=== PATIENT | female | born 1940 | race Caucasian/White ===

== ENCOUNTER 2018-03-05 18:46 | Inpatient (IN) | payer MEDICARE, OTHER ==
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
[2018-03-05 20:10] LABS: % BASOPHILS 0.3 % (0.0-2.0); % EOSINOPHILS 2.8 % (0.0-5.0); % LYMPHOCYTES 20.5 % (20.0-50.0); % MONOCYTES 9.5 % (2.0-10.0); % NEUTROPHILS 66.9 % (40.0-80.0); EOSINOPHILE ABSOLUTE 0.2 Th/cmm (0.1-0.4); HEMATOCRIT 47.4 % (41.0-60); HEMOGLOBIN 16.1 gm/dL (12-16); LYMPHOCYTE ABSOLUTE 1.8 Th/cmm (1.5-3.0); MEAN CELL VOLUME 94.4 fl (81-100); MEAN CORPUSCULAR HEMOGLOBIN 32.1 pg (27.0-31.0); MEAN PLATELET VOLUME 8.3 fl; MONOCYTE ABSOLUTE 0.8 Th/cmm (0.3-1.0); NEUTROPHILE ABSOLUTE 5.9 Th/cmm (1.8-8.0); PLATELET COUNT 363 Th/cmm (150-400); RED BLOOD COUNT 5.02 Mil/cmm (3.80-5.20); RED CELL DISTRIBUTION WIDTH 13.6 % (11.5-20.0); WHITE BLOOD COUNT 8.7 Th/cmm (4.8-10.8)
[2018-03-05 20:24] LABS: ALB/GLOB RATIO 1.2 (1.0-1.8); ALBUMIN 4.3 gm/dL (3.7-5.3); ALKALINE PHOSPHATASE 116 U/L (34-104); ANION GAP 14.2 (7.0-16.0); BILIRUBIN,TOTAL 0.4 mg/dL (0.3-1.0); BUN - UREA NITROGEN 15 mg/dL (7-25); CALCIUM SERUM 9.5 mg/dL (8.6-10.3); CARBON DIOXIDE 23.1 mEq/L (21.0-31.0); CHLORIDE 104 mEq/L (98-107); CREATININE - SERUM 0.7 mg/dL (0.6-1.2); GLUCOSE 90 mg/dL (70-105); POTASSIUM SERUM 4.3 mEq/L (3.5-5.1); SGOT 24 U/L (13-39); SGPT/ALT 15 U/L (7-52); SODIUM SERUM 137 mEq/L (136-145); TOTAL PROTEIN,SERUM 7.8 gm/dL (6.0-8.3)
[2018-03-05 22:10] VITALS: BP 125/72
[2018-03-05] MEDS ORDERED: Maalox 30 mL Cup PO PRN (22:17)
[2018-03-05] MEDS ORDERED: Magnesium Hydroxide (MOM) 30 mL UDC PO PRN (22:17)
[2018-03-06] MEDS: Levothyroxine 0.075 Mg Tab PO SCH (06:45)
--- NOTE | 2018-03-06 07:43 | Diagnostic Imaging Report ---
CHEST X-RAY: AP view INDICATION: Shortness of breath COMPARISON: None FINDINGS: Left basal subsegmental atelectatic changes are noted. There is no focal consolidation or pleural effusions The heart is normal in size. Atherosclerosis of the aortic arch is noted.. Postsurgical changes of the cervical spine are noted. IMPRESSION: Left basal subsegmental atelectasis. No focal consolidation identified. Atherosclerotic vascular disease.
[2018-03-06] MEDS: Vitamin D3 2,000 IU SGL PO SCH (09:14)
[2018-03-06] MEDS: Calcium Carb/Vit D 500 mg/200 U Tab PO SCH (09:14)
[2018-03-06] MEDS: Potassium Chloride 20 mEq ER Tab PO SCH (09:15)
[2018-03-06] MEDS: Multivitamin Tab PO SCH (09:15)
--- NOTE | 2018-03-06 12:42 | History & Physical ---
ADMIT DATE: 03/05/2018 CHIEF COMPLAINT: The patient is being seen for medical evaluation and clearance. PRIMARY DOCTOR: Gregoria Charles M.D. HISTORY OF PRESENT ILLNESS: This is a 77-year-old female with history of seizure, DVT of left lower extremity, hypothyroidism, hypertension, admitted from [facility] secondary to agitated behavior under the service of Dr. Charles. The patient is a poor historian. Denies chest pain or shortness of breath. PAST MEDICAL HISTORY: As mentioned in history of present illness. PAST SURGICAL HISTORY: ____ and tonsillectomy. ALLERGIES: PHENOBARBITAL. MEDICATIONS: Tylenol, calcium, vitamin D3, Depakote, Colace, Pepcid, Lasix, Synthroid, melatonin, Macrobid, Dilantin, potassium, Xarelto, and Ambien. FAMILY HISTORY: Noncontributory. SOCIAL HISTORY: The patient is a nonsmoker, nondrinker. A [facility] patient, one time with 2 children. REVIEW OF SYSTEMS: GENERAL: The patient denies any constitutional symptoms. HEENT: No blurred vision. LUNGS: No diagnosis of COPD or asthma. HEART: The patient has hypertension. Denies coronary artery disease. ABDOMEN: No nausea, vomiting or pain. GENITOURINARY: The patient denies increased frequency or dysuria. NEUROLOGIC: The patient with seizure and headache. PSYCHIATRIC: Stable. PHYSICAL EXAMINATION: VITAL SIGNS: Blood pressure 120/64, respirations 18, pulse 88, temperature is ____. GENERAL: Elderly female, mildly obese. NECK: Supple. No mass. LUNGS: Equal breath sounds, otherwise clear to auscultation. HEART: Regular rate and rhythm without appreciable murmurs. ABDOMEN: Soft, globular. EXTREMITIES: Positive excoriation. NEUROLOGIC: Limited. LABORATORY DATA: WBC 8.7, hemoglobin 16, platelets 363. Sodium 137, potassium 4.3, BUN 34, creatinine 0.7, blood sugar 116. ASSESSMENT AND PLAN: Seizures, schizoaffective disorder, recent urinary tract infection, deep vein thrombosis left lower extremity, hypothyroidism, hypertension, obesity. Continue the patient on oxygen and bronchodilator treatment. Continue antiepileptic medication. Continue fall precaution and seizure precaution. We will continue to follow with you, Dr. Charles. JOB# [id number]
[2018-03-06] MEDS ORDERED: MELATONIN 10 MG PO SCH (21:00)
[2018-03-06] MEDS ORDERED: Non-Formulary Item 1 EA (Melatonin [Melatonin] 10 MG) PO SCH (21:00)
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
[2018-03-07] MEDS: Levothyroxine 0.075 Mg Tab PO SCH (06:34)
[2018-03-07] MEDS: Potassium Chloride 20 mEq ER Tab PO SCH (08:59)
[2018-03-07] MEDS: Vitamin D3 2,000 IU SGL PO SCH (08:59)
[2018-03-07] MEDS: Multivitamin Tab PO SCH (09:00)
[2018-03-07] MEDS: Calcium Carb/Vit D 500 mg/200 U Tab PO SCH (09:00)
--- NOTE | 2018-03-07 14:55 | Internal Medicine Prog Note ---
Internal Medicine Subjective - Subjective Service Date: 03/07/18 Patient seen and examined:: with staff Patient is:: awake, verbal, alexis chair Per staff patient has:: tolerating meds Internal Medicine Objective - Results Result Diagrams: 03/05/18 20:00 03/05/18 20:00 Recent Labs: Laboratory Last Values WBC 8.7 Th/cmm (4.8-10.8) 03/05/18 20:00 RBC 5.02 Mil/cmm (3.80-5.20) 03/05/18 20:00 Hgb 16.1 gm/dL (12-16) 03/05/18 20:00 Hct 47.4 % (41.0-60) 03/05/18 20:00 MCV 94.4 fl (81-100) 03/05/18 20:00 MCH 32.1 pg (27.0-31.0) H 03/05/18 20:00 MCHC Differential 34.0 pg (28.0-36.0) 03/05/18 20:00 RDW 13.6 % (11.5-20.0) 03/05/18 20:00 Plt Count 363 Th/cmm (150-400) 03/05/18 20:00 MPV 8.3 fl 03/05/18 20:00 Neutrophils % 66.9 % (40.0-80.0) 03/05/18 20:00 Lymphocytes % 20.5 % (20.0-50.0) 03/05/18 20:00 Monocytes % 9.5 % (2.0-10.0) 03/05/18 20:00 Eosinophils % 2.8 % (0.0-5.0) 03/05/18 20:00 Basophils % 0.3 % (0.0-2.0) 03/05/18 20:00 Sodium 137 mEq/L (136-145) 03/05/18 20:00 Potassium 4.3 mEq/L (3.5-5.1) 03/05/18 20:00 Chloride 104 mEq/L (98-107) 03/05/18 20:00 Carbon Dioxide 23.1 mEq/L (21.0-31.0) 03/05/18 20:00 Anion Gap 14.2 (7.0-16.0) 03/05/18 20:00 BUN 15 mg/dL (7-25) 03/05/18 20:00 Creatinine 0.7 mg/dL (0.6-1.2) 03/05/18 20:00 Est GFR ( Amer) TNP 03/05/18 20:00 Est GFR (Non-Af Amer) TNP 03/05/18 20:00 BUN/Creatinine Ratio 21.4 03/05/18 20:00 Glucose 90 mg/dL (70-105) 03/05/18 20:00 Calcium 9.5 mg/dL (8.6-10.3) 03/05/18 20:00 Total Bilirubin 0.4 mg/dL (0.3-1.0) 03/05/18 20:00 AST 24 U/L (13-39) 03/05/18 20:00 ALT 15 U/L (7-52) 03/05/18 20:00 Alkaline Phosphatase 116 U/L (34-104) H 03/05/18 20:00 Troponin I < 0.01 ng/mL (0.01-0.05) L 03/05/18 20:00 B-Natriuretic Peptide 53.0 pg/mL (5.0-100.0) 03/05/18 20:00 Total Protein 7.8 gm/dL (6.0-8.3) 03/05/18 20:00 Albumin 4.3 gm/dL (3.7-5.3) 03/05/18 20:00 Globulin 3.5 gm/dL 03/05/18 20:00 Albumin/Globulin Ratio 1.2 (1.0-1.8) 03/05/18 20:00 - Physical Exam Vitals and I&O: Vital Signs Temp 97.6 F 03/07/18 06:14 Pulse 80 03/07/18 06:14 Resp 19 03/07/18 11:19 BP 117/58 03/07/18 09:00 Pulse Ox 92 03/07/18 06:14 Intake & Output 03/06/1818 18 18:59 06:59 18:59 Intake Total 900 360 Balance 900 360 Intake: Oral 900 360 Other: # Voids 3 1 # Bowel Movements 0 Active Medications: Current Medications Acetaminophen (Tylenol) 650 mg PO Q4H PRN PRN Reason: Mild Pain / Temp above 100 Stop: 05/04/18 22:16 Al Hydrox/Mg Hydrox/Simethicone (Maalox) 30 ml PO Q4H PRN PRN Reason: GI DISTRESS Stop: 05/04/18 22:16 Aripiprazole (Abilify) 7.5 mg PO DAILY [facility]; Protocol Stop: 05/05/18 08:59 Last Admin: 03/07/18 09:00 Dose: Not Given Calcium/Vitamin D (Oscal W/Vitamin D) 1 tab PO DAILY [facility] Stop: 05/05/18 08:59 Last Admin: 03/07/18 09:00 Dose: Not Given Divalproex Sodium (Depakote Sprinkle) 500 mg PO BID [facility]; Protocol Stop: 05/05/18 08:59 Last Admin: 03/07/18 08:59 Dose: Not Given Docusate Sodium (Colace) 100 mg PO DAILY [facility] Stop: 05/05/18 08:59 Last Admin: 03/07/18 09:00 Dose: Not Given Famotidine (Pepcid) 20 mg PO BIDAC [facility] Stop: 05/05/18 07:29 Last Admin: 03/07/18 06:34 Dose: 20 mg Furosemide (Lasix) 40 mg PO DAILY [facility] Stop: 05/05/18 08:59 Last Admin: 03/07/18 09:00 Dose: Not Given Levothyroxine Sodium (Synthroid) 0.075 mg PO QDAC [facility] Stop: 05/05/18 07:29 Last Admin: 03/07/18 06:34 Dose: 0.075 mg Lorazepam (Ativan) 0.5 mg PO Q4H PRN; Protocol PRN Reason: Anxiety/Agitation Stop: 05/04/18 22:49 Last Admin: 03/05/18 23:50 Dose: 0.5 mg Magnesium Hydroxide (Milk Of Magnesia) 30 ml PO HS PRN PRN Reason: Constipation Miscellaneous (Clinical Monitoring) 1 ea [facility] DAILY PRN PRN Reason: RENAL Stop: 05/05/18 08:59 Multivitamins/Vitamin C (Theragran) 1 tab PO DAILY [facility] Stop: 05/05/18 08:59 Last Admin: 03/07/18 09:00 Dose: Not Given Nitrofurantoin Macrocrystals (Macrobid) 100 mg PO BID [facility]; Protocol Stop: 03/16/18 08:59 Last Admin: 03/07/18 08:59 Dose: Not Given Phenytoin (Dilantin) 200 mg PO BID [facility] Stop: 05/05/18 08:59 Last Admin: 03/07/18 08:59 Dose: 200 mg Potassium Chloride (Klor-Con) 40 meq PO DAILY [facility] Stop: 05/05/18 08:59 Last Admin: 03/07/18 08:59 Dose: Not Given Rivaroxaban (Xarelto) 20 mg PO HS [facility] Stop: 05/04/18 22:59 Last Admin: 03/06/18 20:49 Dose: 20 mg Vitamin D (Vitamin D3) 2,000 iu PO DAILY [facility] Stop: 05/05/18 08:59 Last Admin: 03/07/18 08:59 Dose: Not Given Zolpidem Tartrate (Ambien) 5 mg PO HS PRN PRN Reason: Insomnia Stop: 05/04/18 22:16 Last Admin: 03/06/18 20:49 Dose: 5 mg General: alert HEENT: NC/AT, PERRLA Neck: Supple Lungs: CTAB Cardiovascular: RRR, Normal S1, Normal S2, without murmur Abdomen: soft, non-tender, non-distended Extremities: excoriation Neurological: alert Internal Medicine Assmt/Plan - Assessment Assessment: seizures schizoaffective recent uti dvt left lower extremity hypothyroidism htn obesity - Plan Plan: seizure precautions o2 as needed continue current plan of care
--- NOTE | 2018-03-08 00:22 | Progress Notes ---
DATE: 03/07/2018 SUBJECTIVE: Staff was spoken to. The patient is interviewed. Mood is noted to be irritable. Affect is constricted. Insight and judgment at this time are noted to be still impaired. Impulse control is noted to be limited. Coping skills are noted to be limited. The patient has been having paranoid delusions. The patient is being closely monitored for her combative and aggressive behavior towards the staff. No side effects to the medications are noted. The patient is currently on the Abilify and Depakote and has been able to tolerate the medication. ASSESSMENT: The patient is still psychotic and impulsive. PLAN: To continue the patient with the supportive therapy. Encouraged the patient to verbalize the concerns rather than to act out. JOB# [id number]
[2018-03-08] MEDS: Levothyroxine 0.075 Mg Tab PO SCH (07:07)
[2018-03-08] MEDS: Calcium Carb/Vit D 500 mg/200 U Tab PO SCH (09:07)
[2018-03-08] MEDS: Vitamin D3 2,000 IU SGL PO SCH (09:07)
[2018-03-08] MEDS: Potassium Chloride 20 mEq ER Tab PO SCH (09:08)
[2018-03-08] MEDS: Multivitamin Tab PO SCH (09:08)
--- NOTE | 2018-03-08 12:36 | Internal Medicine Prog Note ---
Internal Medicine Subjective - Subjective Service Date: 03/08/18 Patient is:: awake, verbal, alexis chair Per staff patient has:: tolerating meds Internal Medicine Objective - Results Result Diagrams: 03/05/18 20:00 03/05/18 20:00 Recent Labs: Laboratory Last Values WBC 8.7 Th/cmm (4.8-10.8) 03/05/18 20:00 RBC 5.02 Mil/cmm (3.80-5.20) 03/05/18 20:00 Hgb 16.1 gm/dL (12-16) 03/05/18 20:00 Hct 47.4 % (41.0-60) 03/05/18 20:00 MCV 94.4 fl (81-100) 03/05/18 20:00 MCH 32.1 pg (27.0-31.0) H 03/05/18 20:00 MCHC Differential 34.0 pg (28.0-36.0) 03/05/18 20:00 RDW 13.6 % (11.5-20.0) 03/05/18 20:00 Plt Count 363 Th/cmm (150-400) 03/05/18 20:00 MPV 8.3 fl 03/05/18 20:00 Neutrophils % 66.9 % (40.0-80.0) 03/05/18 20:00 Lymphocytes % 20.5 % (20.0-50.0) 03/05/18 20:00 Monocytes % 9.5 % (2.0-10.0) 03/05/18 20:00 Eosinophils % 2.8 % (0.0-5.0) 03/05/18 20:00 Basophils % 0.3 % (0.0-2.0) 03/05/18 20:00 Sodium 137 mEq/L (136-145) 03/05/18 20:00 Potassium 4.3 mEq/L (3.5-5.1) 03/05/18 20:00 Chloride 104 mEq/L (98-107) 03/05/18 20:00 Carbon Dioxide 23.1 mEq/L (21.0-31.0) 03/05/18 20:00 Anion Gap 14.2 (7.0-16.0) 03/05/18 20:00 BUN 15 mg/dL (7-25) 03/05/18 20:00 Creatinine 0.7 mg/dL (0.6-1.2) 03/05/18 20:00 Est GFR ( Amer) TNP 03/05/18 20:00 Est GFR (Non-Af Amer) TNP 03/05/18 20:00 BUN/Creatinine Ratio 21.4 03/05/18 20:00 Glucose 90 mg/dL (70-105) 03/05/18 20:00 Calcium 9.5 mg/dL (8.6-10.3) 03/05/18 20:00 Total Bilirubin 0.4 mg/dL (0.3-1.0) 03/05/18 20:00 AST 24 U/L (13-39) 03/05/18 20:00 ALT 15 U/L (7-52) 03/05/18 20:00 Alkaline Phosphatase 116 U/L (34-104) H 03/05/18 20:00 Troponin I < 0.01 ng/mL (0.01-0.05) L 03/05/18 20:00 B-Natriuretic Peptide 53.0 pg/mL (5.0-100.0) 03/05/18 20:00 Total Protein 7.8 gm/dL (6.0-8.3) 03/05/18 20:00 Albumin 4.3 gm/dL (3.7-5.3) 03/05/18 20:00 Globulin 3.5 gm/dL 03/05/18 20:00 Albumin/Globulin Ratio 1.2 (1.0-1.8) 03/05/18 20:00 - Physical Exam Vitals and I&O: Vital Signs Temp 97.4 F 03/08/18 06:16 Pulse 76 03/08/18 06:16 Resp 20 03/08/18 06:16 BP 111/67 03/08/18 06:16 Pulse Ox 96 03/08/18 06:16 Intake & Output 03/07/18 03/08/18 03/08/18 18:59 06:59 18:59 Intake Total 960 120 Balance 960 120 Intake: Oral 960 120 Other: # Voids 3 3 # Bowel Movements 1 Active Medications: Current Medications Acetaminophen (Tylenol) 650 mg PO Q4H PRN PRN Reason: Mild Pain / Temp above 100 Stop: 05/04/18 22:16 Al Hydrox/Mg Hydrox/Simethicone (Maalox) 30 ml PO Q4H PRN PRN Reason: GI DISTRESS Stop: 05/04/18 22:16 Aripiprazole (Abilify) 7.5 mg PO DAILY [facility]; Protocol Stop: 05/05/18 08:59 Last Admin: 03/08/18 09:00 Dose: Not Given Calcium/Vitamin D (Oscal W/Vitamin D) 1 tab PO DAILY [facility] Stop: 05/05/18 08:59 Last Admin: 03/08/18 09:07 Dose: Not Given Divalproex Sodium (Depakote Sprinkle) 500 mg PO BID [facility]; Protocol Stop: 05/05/18 08:59 Last Admin: 03/08/18 09:01 Dose: 250 mg Docusate Sodium (Colace) 100 mg PO DAILY [facility] Stop: 05/05/18 08:59 Last Admin: 03/08/18 09:01 Dose: Not Given Famotidine (Pepcid) 20 mg PO BIDAC [facility] Stop: 05/05/18 07:29 Last Admin: 03/08/18 07:07 Dose: 20 mg Furosemide (Lasix) 40 mg PO DAILY [facility] Stop: 05/05/18 08:59 Last Admin: 03/08/18 09:08 Dose: Not Given Levothyroxine Sodium (Synthroid) 0.075 mg PO QDAC [facility] Stop: 05/05/18 07:29 Last Admin: 03/08/18 07:07 Dose: 0.075 mg Lorazepam (Ativan) 0.5 mg PO Q4H PRN; Protocol PRN Reason: Anxiety/Agitation Stop: 05/04/18 22:49 Last Admin: 03/05/18 23:50 Dose: 0.5 mg Magnesium Hydroxide (Milk Of Magnesia) 30 ml PO HS PRN PRN Reason: Constipation Miscellaneous (Clinical Monitoring) 1 ea [facility] DAILY PRN PRN Reason: RENAL Stop: 05/05/18 08:59 Multivitamins/Vitamin C (Theragran) 1 tab PO DAILY [facility] Stop: 05/05/18 08:59 Last Admin: 03/08/18 09:08 Dose: Not Given Nitrofurantoin Macrocrystals (Macrobid) 100 mg PO BID [facility]; Protocol Stop: 03/16/18 08:59 Last Admin: 03/08/18 09:01 Dose: Not Given Phenytoin (Dilantin) 200 mg PO BID [facility] Stop: 05/05/18 08:59 Last Admin: 03/08/18 09:00 Dose: 100 mg Potassium Chloride (Klor-Con) 40 meq PO DAILY [facility] Stop: 05/05/18 08:59 Last Admin: 03/08/18 09:08 Dose: Not Given Rivaroxaban (Xarelto) 20 mg PO HS [facility] Stop: 05/04/18 22:59 Last Admin: 03/07/18 20:26 Dose: 20 mg Vitamin D (Vitamin D3) 2,000 iu PO DAILY [facility] Stop: 05/05/18 08:59 Last Admin: 03/08/18 09:07 Dose: Not Given Zolpidem Tartrate (Ambien) 5 mg PO HS PRN PRN Reason: Insomnia Stop: 05/04/18 22:16 Last Admin: 03/07/18 20:27 Dose: 5 mg General: alert HEENT: NC/AT, PERRLA Neck: Supple Lungs: CTAB Cardiovascular: RRR, Normal S1, Normal S2, without murmur Abdomen: soft, non-tender, non-distended Extremities: excoriation Neurological: alert Internal Medicine Assmt/Plan - Assessment Assessment: seizures schizoaffective recent uti dvt left lower extremity hypothyroidism htn obesity - Plan Plan: seizure precautions o2 as needed continue current plan of care
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
--- NOTE | 2018-03-09 01:28 | Progress Notes ---
DATE: 03/08/2018 PSYCHIATRIC PROGRESS NOTE SUBJECTIVE: Staff was spoken to. The patient is interviewed. Mood is noted to be irritable. Affect is constricted. The patient has paranoid delusions. Denies any commanding hallucinations today. No side effects to the medications are noted. The patient has been currently on Abilify that she has been getting at 7.5 mg and she is also on Depakote 500 mg twice a day. The patient has been able to tolerate the medications, no side effects to the medications are noted. The patient is, at this time, stating that the medication is making her to be too anxious and hence, the dose of the Abilify has been changed to 5 mg in the morning and the patient is going to be followed up with the supportive therapy. ASSESSMENT: The patient has paranoia and mood swings are coming under control. PLAN: To continue the patient with the current medications and follow up. JOB# [id number]
[2018-03-09] MEDS: Levothyroxine 0.075 Mg Tab PO SCH (06:30)
--- NOTE | 2018-03-09 08:44 | Progress Notes ---
DATE: 03/09/2018 PSYCHIATRIC PROGRESS NOTE SUBJECTIVE: Staff was spoken to. The patient is interviewed. Mood is noted to be irritable. Affect is constricted. Coping skills are noted to be still poor. The patient has paranoid delusions, but denies any commanding hallucinations. Insight and judgment at this time are noted to be still impaired. Impulse control seems to be limited. ASSESSMENT AND PLAN: The patient is currently on Abilify, which is being given at 5 mg, and the patient is being given valproic acid 500 mg twice a day. No side effects to the medications are noted. The patient's mood swings are coming under control, but the patient continues to be paranoid. Follow up. [facility]# [id number]
[2018-03-09] MEDS: Calcium Carb/Vit D 500 mg/200 U Tab PO SCH (09:07)
[2018-03-09] MEDS: Multivitamin Tab PO SCH (09:07)
[2018-03-09] MEDS: Vitamin D3 2,000 IU SGL PO SCH (09:09)
[2018-03-09] MEDS: Potassium Chloride 20 mEq ER Tab PO SCH (09:10)
--- NOTE | 2018-03-09 15:45 | Internal Medicine Prog Note ---
Internal Medicine Subjective - Subjective Service Date: 03/09/18 Patient is:: awake, verbal, alexis chair Per staff patient has:: tolerating meds Internal Medicine Objective - Results Result Diagrams: 03/05/18 20:00 03/05/18 20:00 Recent Labs: Laboratory Last Values WBC 8.7 Th/cmm (4.8-10.8) 03/05/18 20:00 RBC 5.02 Mil/cmm (3.80-5.20) 03/05/18 20:00 Hgb 16.1 gm/dL (12-16) 03/05/18 20:00 Hct 47.4 % (41.0-60) 03/05/18 20:00 MCV 94.4 fl (81-100) 03/05/18 20:00 MCH 32.1 pg (27.0-31.0) H 03/05/18 20:00 MCHC Differential 34.0 pg (28.0-36.0) 03/05/18 20:00 RDW 13.6 % (11.5-20.0) 03/05/18 20:00 Plt Count 363 Th/cmm (150-400) 03/05/18 20:00 MPV 8.3 fl 03/05/18 20:00 Neutrophils % 66.9 % (40.0-80.0) 03/05/18 20:00 Lymphocytes % 20.5 % (20.0-50.0) 03/05/18 20:00 Monocytes % 9.5 % (2.0-10.0) 03/05/18 20:00 Eosinophils % 2.8 % (0.0-5.0) 03/05/18 20:00 Basophils % 0.3 % (0.0-2.0) 03/05/18 20:00 Sodium 137 mEq/L (136-145) 03/05/18 20:00 Potassium 4.3 mEq/L (3.5-5.1) 03/05/18 20:00 Chloride 104 mEq/L (98-107) 03/05/18 20:00 Carbon Dioxide 23.1 mEq/L (21.0-31.0) 03/05/18 20:00 Anion Gap 14.2 (7.0-16.0) 03/05/18 20:00 BUN 15 mg/dL (7-25) 03/05/18 20:00 Creatinine 0.7 mg/dL (0.6-1.2) 03/05/18 20:00 Est GFR ( Amer) TNP 03/05/18 20:00 Est GFR (Non-Af Amer) TNP 03/05/18 20:00 BUN/Creatinine Ratio 21.4 03/05/18 20:00 Glucose 90 mg/dL (70-105) 03/05/18 20:00 Calcium 9.5 mg/dL (8.6-10.3) 03/05/18 20:00 Total Bilirubin 0.4 mg/dL (0.3-1.0) 03/05/18 20:00 AST 24 U/L (13-39) 03/05/18 20:00 ALT 15 U/L (7-52) 03/05/18 20:00 Alkaline Phosphatase 116 U/L (34-104) H 03/05/18 20:00 Troponin I < 0.01 ng/mL (0.01-0.05) L 03/05/18 20:00 B-Natriuretic Peptide 53.0 pg/mL (5.0-100.0) 03/05/18 20:00 Total Protein 7.8 gm/dL (6.0-8.3) 03/05/18 20:00 Albumin 4.3 gm/dL (3.7-5.3) 03/05/18 20:00 Globulin 3.5 gm/dL 03/05/18 20:00 Albumin/Globulin Ratio 1.2 (1.0-1.8) 03/05/18 20:00 - Physical Exam Vitals and I&O: Vital Signs Temp 97.5 F 03/09/18 14:00 Pulse 89 03/09/18 14:00 Resp 20 03/09/18 14:00 BP 121/58 03/09/18 14:00 Pulse Ox 97 03/09/18 14:00 Intake & Output 03/08/18 03/09/18 03/09/18 18:59 06:59 18:59 Intake Total 1000 120 Balance 1000 120 Intake: Oral 1000 120 Other: # Voids 3 3 Active Medications: Current Medications Acetaminophen (Tylenol) 650 mg PO Q4H PRN PRN Reason: Mild Pain / Temp above 100 Stop: 05/04/18 22:16 Al Hydrox/Mg Hydrox/Simethicone (Maalox) 30 ml PO Q4H PRN PRN Reason: GI DISTRESS Stop: 05/04/18 22:16 Aripiprazole (Abilify) 5 mg PO DAILY [facility]; Protocol Stop: 05/08/18 08:59 Last Admin: 03/09/18 09:59 Dose: Not Given Calcium/Vitamin D (Oscal W/Vitamin D) 1 tab PO DAILY JESSENIA Stop: 05/05/18 08:59 Last Admin: 03/09/18 09:07 Dose: 1 tab Divalproex Sodium (Depakote Sprinkle) 500 mg PO BID [facility]; Protocol Stop: 05/05/18 08:59 Last Admin: 03/09/18 09:12 Dose: 250 mg Docusate Sodium (Colace) 100 mg PO DAILY [facility] Stop: 05/05/18 08:59 Last Admin: 03/09/18 09:12 Dose: 100 mg Famotidine (Pepcid) 20 mg PO BIDAC [facility] Stop: 05/05/18 07:29 Last Admin: 03/09/18 06:30 Dose: 20 mg Furosemide (Lasix) 40 mg PO DAILY [facility] Stop: 05/05/18 08:59 Last Admin: 03/09/18 09:10 Dose: Not Given Levothyroxine Sodium (Synthroid) 0.075 mg PO QDAC [facility] Stop: 05/05/18 07:29 Last Admin: 03/09/18 06:30 Dose: 0.075 mg Lorazepam (Ativan) 0.5 mg PO Q4H PRN; Protocol PRN Reason: Anxiety/Agitation Stop: 05/04/18 22:49 Last Admin: 03/05/18 23:50 Dose: 0.5 mg Magnesium Hydroxide (Milk Of Magnesia) 30 ml PO HS PRN PRN Reason: Constipation Miscellaneous (Clinical Monitoring) 1 ea MC DAILY PRN PRN Reason: RENAL Stop: 05/05/18 08:59 Multivitamins/Vitamin C (Theragran) 1 tab PO DAILY JESSENIA Stop: 05/05/18 08:59 Last Admin: 03/09/18 09:07 Dose: 1 tab Nitrofurantoin Macrocrystals (Macrobid) 100 mg PO BID [facility]; Protocol Stop: 03/16/18 08:59 Last Admin: 03/09/18 09:11 Dose: 100 mg Phenytoin (Dilantin) 200 mg PO BID JESSENIA Stop: 05/05/18 08:59 Last Admin: 03/09/18 09:08 Dose: 200 mg Potassium Chloride (Klor-Con) 40 meq PO DAILY JESSENIA Stop: 05/05/18 08:59 Last Admin: 03/09/18 09:10 Dose: Not Given Rivaroxaban (Xarelto) 20 mg PO HS JESSENIA Stop: 05/04/18 22:59 Last Admin: 03/08/18 21:51 Dose: 20 mg Vitamin D (Vitamin D3) 2,000 iu PO DAILY JESSENIA Stop: 05/05/18 08:59 Last Admin: 03/09/18 09:09 Dose: 2,000 iu Zolpidem Tartrate (Ambien) 5 mg PO HS PRN PRN Reason: Insomnia Stop: 05/04/18 22:16 Last Admin: 03/08/18 21:51 Dose: 5 mg General: alert HEENT: NC/AT, PERRLA Neck: Supple Lungs: CTAB Cardiovascular: RRR, Normal S1, Normal S2, without murmur Abdomen: soft, non-tender, non-distended Extremities: excoriation Neurological: alert Internal Medicine Assmt/Plan - Assessment Assessment: seizures schizoaffective recent uti dvt left lower extremity hypothyroidism htn obesity - Plan Plan: seizure precautions o2 as needed continue current plan of care Nutritional Asmnt/Malnutr-PDOC - Dietary Evaluation Malnutrition Findings (Please click <Entered> for more info): Nutritional Asmnt/Malnutrition Start: 03/09/18 14: 19 Text: Status: Complete Freq: Protocol: Document 03/09/18 14:19 LCHENG (Rec: 03/09/18 14:29 [email or web address] [email or web address]) Nutritional Asmnt/Malnutrition Patient General Information Nutritional Screening Moderate Risk Diagnosis psychosis Pertinent Medical Hx/Surgical Hx seizure, DVT, hypothyroidism, HTN Subjective Information Pt seen eating lunch in dining room at time of visit. Pt was eating well. Per EMR, PO intake 100%. Current Diet Order/ Nutrition Support [facility] soft ground Pertinent Medications oscal w/vit D, colace, pepcid, lasix, synthorid, theragran, kcl, vit D3 Pertinent Labs 03/05 nutrition labs WNL Nutritional Hx/Data Height 5 ft Height (Calculated Centimeters) 152.4 Current Weight (lbs) 180 lb Weight (Calculated Kilograms) 81.6 Weight (Calculated Grams) 07306.6 [place] Body Weight 100 Body Mass Index (BMI) 35.2 Weight Status Obese GI Symptoms GI Symptoms None Last BM 03/07 Difficult in: None Skin Integrity/Comment: dryness Current %PO Good (75-100%) Estimated Nutritional Goals BEE in Kcals: Adj wt of IBW Calories/Kcals/Kg 25-30 Kcals Calculated 3369-9388 Protein: Adj wt of IBW Protein g/k Protein Calculated 55 Fluid: ml 1375-1650ml (1ml/kcal) Nutritional Problem No current Nutrition Prob Problem N/A Malnutrition Alert Is there a minimum of two criteria No selected? Query Text:Check all the applicable criteria. A minimum of two criteria are recommended for diagnosis of either severe or non-severe malnutrition. Malnutrition Related to Morbid Obesity Malnutrition related to morbid obesity No Intervention/Recommendation Comments 1. Continue with [facility] soft ground diet as ordered. 2. Monitor PO intake, wt, labs and skin integrity 3. F/U as low risk in 7 days, 03/15 Expected Outcomes/Goals Expected Outcomes/Goals 1. PO intake to meet at least 75% of nutritional needs. 2. Wt stability, skin to remain intact, labs to approach WNL.
[2018-03-10] MEDS: Levothyroxine 0.075 Mg Tab PO SCH (06:47)
[2018-03-10] MEDS: Vitamin D3 2,000 IU SGL PO SCH (09:11)
[2018-03-10] MEDS: Multivitamin Tab PO SCH (09:15)
[2018-03-10] MEDS: Calcium Carb/Vit D 500 mg/200 U Tab PO SCH (09:15)
[2018-03-10] MEDS: Potassium Chloride 20 mEq ER Tab PO SCH (09:21)
--- NOTE | 2018-03-10 14:29 | Internal Medicine Prog Note ---
Internal Medicine Subjective - Subjective Patient seen and examined:: with staff, chart reviewed Patient is:: awake, verbal, alexis chair Per staff patient has:: no adverse event, no episodes of fall, poor appetite, tolerating meds Internal Medicine Objective - Results Result Diagrams: 03/05/18 20:00 03/05/18 20:00 Recent Labs: Laboratory Last Values WBC 8.7 Th/cmm (4.8-10.8) 03/05/18 20:00 RBC 5.02 Mil/cmm (3.80-5.20) 03/05/18 20:00 Hgb 16.1 gm/dL (12-16) 03/05/18 20:00 Hct 47.4 % (41.0-60) 03/05/18 20:00 MCV 94.4 fl (81-100) 03/05/18 20:00 MCH 32.1 pg (27.0-31.0) H 03/05/18 20:00 MCHC Differential 34.0 pg (28.0-36.0) 03/05/18 20:00 RDW 13.6 % (11.5-20.0) 03/05/18 20:00 Plt Count 363 Th/cmm (150-400) 03/05/18 20:00 MPV 8.3 fl 03/05/18 20:00 Neutrophils % 66.9 % (40.0-80.0) 03/05/18 20:00 Lymphocytes % 20.5 % (20.0-50.0) 03/05/18 20:00 Monocytes % 9.5 % (2.0-10.0) 03/05/18 20:00 Eosinophils % 2.8 % (0.0-5.0) 03/05/18 20:00 Basophils % 0.3 % (0.0-2.0) 03/05/18 20:00 Sodium 137 mEq/L (136-145) 03/05/18 20:00 Potassium 4.3 mEq/L (3.5-5.1) 03/05/18 20:00 Chloride 104 mEq/L (98-107) 03/05/18 20:00 Carbon Dioxide 23.1 mEq/L (21.0-31.0) 03/05/18 20:00 Anion Gap 14.2 (7.0-16.0) 03/05/18 20:00 BUN 15 mg/dL (7-25) 03/05/18 20:00 Creatinine 0.7 mg/dL (0.6-1.2) 03/05/18 20:00 Est GFR ( Amer) TNP 03/05/18 20:00 Est GFR (Non-Af Amer) TNP 03/05/18 20:00 BUN/Creatinine Ratio 21.4 03/05/18 20:00 Glucose 90 mg/dL (70-105) 03/05/18 20:00 Calcium 9.5 mg/dL (8.6-10.3) 03/05/18 20:00 Total Bilirubin 0.4 mg/dL (0.3-1.0) 03/05/18 20:00 AST 24 U/L (13-39) 03/05/18 20:00 ALT 15 U/L (7-52) 03/05/18 20:00 Alkaline Phosphatase 116 U/L (34-104) H 03/05/18 20:00 Troponin I < 0.01 ng/mL (0.01-0.05) L 03/05/18 20:00 B-Natriuretic Peptide 53.0 pg/mL (5.0-100.0) 03/05/18 20:00 Total Protein 7.8 gm/dL (6.0-8.3) 03/05/18 20:00 Albumin 4.3 gm/dL (3.7-5.3) 03/05/18 20:00 Globulin 3.5 gm/dL 03/05/18 20:00 Albumin/Globulin Ratio 1.2 (1.0-1.8) 03/05/18 20:00 - Physical Exam Vitals and I&O: Vital Signs Temp 97.8 F 03/10/18 06:58 Pulse 74 03/10/18 06:58 Resp 20 03/10/18 06:58 BP 127/58 03/10/18 09:21 Pulse Ox 97 03/10/18 06:58 Intake & Output 03/09/18 03/10/18 03/10/18 18:59 06:59 18:59 Intake Total 1200 Balance 1200 Intake: Oral 1200 Other: # Voids 3 # Bowel Movements 0 Active Medications: Current Medications Acetaminophen (Tylenol) 650 mg PO Q4H PRN PRN Reason: Mild Pain / Temp above 100 Stop: 05/04/18 22:16 Al Hydrox/Mg Hydrox/Simethicone (Maalox) 30 ml PO Q4H PRN PRN Reason: GI DISTRESS Stop: 05/04/18 22:16 Aripiprazole (Abilify) 5 mg PO DAILY JESSENIA; Protocol Stop: 05/08/18 08:59 Last Admin: 03/10/18 09:15 Dose: 5 mg Calcium/Vitamin D (Oscal W/Vitamin D) 1 tab PO DAILY JESSENIA Stop: 05/05/18 08:59 Last Admin: 03/10/18 09:15 Dose: 1 tab Divalproex Sodium (Depakote Sprinkle) 500 mg PO BID JESSENIA; Protocol Stop: 05/05/18 08:59 Last Admin: 03/10/18 09:09 Dose: 250 mg Docusate Sodium (Colace) 100 mg PO DAILY JESSENIA Stop: 05/05/18 08:59 Last Admin: 03/10/18 09:15 Dose: 100 mg Famotidine (Pepcid) 20 mg PO BIDAC JESSENIA Stop: 05/05/18 07:29 Last Admin: 03/10/18 06:47 Dose: 20 mg Furosemide (Lasix) 40 mg PO DAILY JESSENIA Stop: 05/05/18 08:59 Last Admin: 03/10/18 09:21 Dose: Not Given Levothyroxine Sodium (Synthroid) 0.075 mg PO QDAC JESSENIA Stop: 05/05/18 07:29 Last Admin: 03/10/18 06:47 Dose: 0.075 mg Lorazepam (Ativan) 0.5 mg PO Q4H PRN; Protocol PRN Reason: Anxiety/Agitation Stop: 05/04/18 22:49 Last Admin: 03/05/18 23:50 Dose: 0.5 mg Magnesium Hydroxide (Milk Of Magnesia) 30 ml PO HS PRN PRN Reason: Constipation Miscellaneous (Clinical Monitoring) 1 ea MC DAILY PRN PRN Reason: RENAL Stop: 05/05/18 08:59 Multivitamins/Vitamin C (Theragran) 1 tab PO DAILY JESSENIA Stop: 05/05/18 08:59 Last Admin: 03/10/18 09:15 Dose: 1 tab Nitrofurantoin Macrocrystals (Macrobid) 100 mg PO BID JESSENIA; Protocol Stop: 03/16/18 08:59 Last Admin: 03/10/18 09:14 Dose: 100 mg Phenytoin (Dilantin) 200 mg PO BID [facility] Stop: 05/05/18 08:59 Last Admin: 03/10/18 09:10 Dose: 200 mg Potassium Chloride (Klor-Con) 40 meq PO DAILY [facility] Stop: 05/05/18 08:59 Last Admin: 03/10/18 09:21 Dose: Not Given Rivaroxaban (Xarelto) 20 mg PO HS JESSENIA Stop: 05/04/18 22:59 Last Admin: 03/09/18 21:13 Dose: 20 mg Vitamin D (Vitamin D3) 2,000 iu PO DAILY [facility] Stop: 05/05/18 08:59 Last Admin: 03/10/18 09:11 Dose: 2,000 iu Zolpidem Tartrate (Ambien) 5 mg PO HS PRN PRN Reason: Insomnia Stop: 05/04/18 22:16 Last Admin: 03/09/18 21:14 Dose: 5 mg General: demented HEENT: NC/AT, PERRLA Neck: Supple Lungs: CTAB Cardiovascular: RRR, Normal S1, Normal S2, without murmur Abdomen: soft, non-tender, non-distended Extremities: excoriation Neurological: alert Internal Medicine Assmt/Plan - Assessment Assessment: - Assessment Assessment: seizures schizoaffective recent uti dvt left lower extremity hypothyroidism htn obesity - Plan Plan: seizure precautions o2 as needed continue current plan of care - Plan Plan: cpm Nutritional Asmnt/Malnutr-PDOC - Dietary Evaluation Malnutrition Findings (Please click <Entered> for more info): Nutritional Asmnt/Malnutrition Start: 03/09/18 14: 19 Text: Status: Complete Freq: Protocol: Document 03/09/18 14:19 LCHENG (Rec: 03/09/18 14:29 [email or web address] [email or web address]) Nutritional Asmnt/Malnutrition Patient General Information Nutritional Screening Moderate Risk Diagnosis psychosis Pertinent Medical Hx/Surgical Hx seizure, DVT, hypothyroidism, HTN Subjective Information Pt seen eating lunch in dining room at time of visit. Pt was eating well. Per EMR, PO intake 100%. Current Diet Order/ Nutrition Support [facility] soft ground Pertinent Medications oscal w/vit D, colace, pepcid, lasix, synthorid, theragran, kcl, vit D3 Pertinent Labs 03/05 nutrition labs WNL Nutritional Hx/Data Height 1.52 m Height (Calculated Centimeters) 152.4 Current Weight (lbs) 81.647 kg Weight (Calculated Kilograms) 81.6 Weight (Calculated Grams) 28554.6 [place] Body Weight 100 Body Mass Index (BMI) 35.2 Weight Status Obese GI Symptoms GI Symptoms None Last BM 03/07 Difficult in: None Skin Integrity/Comment: dryness Current %PO Good (75-100%) Estimated Nutritional Goals BEE in Kcals: Adj wt of IBW Calories/Kcals/Kg 25-30 Kcals Calculated 9892-1412 Protein: Adj wt of IBW Protein g/k Protein Calculated 55 Fluid: ml 1375-1650ml (1ml/kcal) Nutritional Problem No current Nutrition Prob Problem N/A Malnutrition Alert Is there a minimum of two criteria No selected? Query Text:Check all the applicable criteria. A minimum of two criteria are recommended for diagnosis of either severe or non-severe malnutrition. Malnutrition Related to Morbid Obesity Malnutrition related to morbid obesity No Intervention/Recommendation Comments 1. Continue with [facility] soft ground diet as ordered. 2. Monitor PO intake, wt, labs and skin integrity 3. F/U as low risk in 7 days, 03/15 Expected Outcomes/Goals Expected Outcomes/Goals 1. PO intake to meet at least 75% of nutritional needs. 2. Wt stability, skin to remain intact, labs to approach WNL.
[2018-03-10 18:06] LABS: ALB/GLOB RATIO 1.4 (1.0-1.8); ALBUMIN 4.2 gm/dL (3.7-5.3); ALKALINE PHOSPHATASE 100 U/L (34-104); ANION GAP 11.2 (7.0-16.0); BILIRUBIN,TOTAL 0.4 mg/dL (0.3-1.0); BUN - UREA NITROGEN 17 mg/dL (7-25); CALCIUM SERUM 9.4 mg/dL (8.6-10.3); CARBON DIOXIDE 27.6 mEq/L (21.0-31.0); CHLORIDE 100 mEq/L (98-107); CREATININE - SERUM 0.6 mg/dL (0.6-1.2); GLUCOSE 96 mg/dL (70-105); POTASSIUM SERUM 4.8 mEq/L (3.5-5.1); SGOT 23 U/L (13-39); SGPT/ALT 23 U/L (7-52); SODIUM SERUM 134 mEq/L (136-145); TOTAL PROTEIN,SERUM 7.3 gm/dL (6.0-8.3)
--- NOTE | 2018-03-10 18:22 | Progress Notes ---
DATE: 03/10/2018 SUBJECTIVE: Staff was spoken to. The patient is interviewed. Mood is noted to be irritable. Affect is constricted. The patient has paranoia, but denies any command hallucinations. Insight and judgment are noted to be still impaired. The patient is isolative and withdrawn. ASSESSMENT: The patient is still paranoid. PLAN: To continue the patient with the supportive therapy. I encouraged the patient to verbalize the concerns rather than to act out. The patient is not ready to be discharged to a lower level of care yet. JOB# [id number]
[2018-03-11] MEDS: Levothyroxine 0.075 Mg Tab PO SCH (06:37)
[2018-03-11] MEDS: Multivitamin Tab PO SCH (08:07)
[2018-03-11] MEDS: Vitamin D3 2,000 IU SGL PO SCH (08:07)
[2018-03-11] MEDS: Calcium Carb/Vit D 500 mg/200 U Tab PO SCH (08:08)
[2018-03-11] MEDS: Potassium Chloride 20 mEq ER Tab PO SCH (08:09)
--- NOTE | 2018-03-11 12:02 | Internal Medicine Prog Note ---
Internal Medicine Subjective - Subjective Patient seen and examined:: with staff, chart reviewed Patient is:: awake, verbal, alexis chair Per staff patient has:: no adverse event, no episodes of fall, poor appetite, tolerating meds Internal Medicine Objective - Results Result Diagrams: 03/05/18 20:00 03/10/18 17:34 Recent Labs: Laboratory Last Values WBC 8.7 Th/cmm (4.8-10.8) 03/05/18 20:00 RBC 5.02 Mil/cmm (3.80-5.20) 03/05/18 20:00 Hgb 16.1 gm/dL (12-16) 03/05/18 20:00 Hct 47.4 % (41.0-60) 03/05/18 20:00 MCV 94.4 fl (81-100) 03/05/18 20:00 MCH 32.1 pg (27.0-31.0) H 03/05/18 20:00 MCHC Differential 34.0 pg (28.0-36.0) 03/05/18 20:00 RDW 13.6 % (11.5-20.0) 03/05/18 20:00 Plt Count 363 Th/cmm (150-400) 03/05/18 20:00 MPV 8.3 fl 03/05/18 20:00 Neutrophils % 66.9 % (40.0-80.0) 03/05/18 20:00 Lymphocytes % 20.5 % (20.0-50.0) 03/05/18 20:00 Monocytes % 9.5 % (2.0-10.0) 03/05/18 20:00 Eosinophils % 2.8 % (0.0-5.0) 03/05/18 20:00 Basophils % 0.3 % (0.0-2.0) 03/05/18 20:00 Sodium 134 mEq/L (136-145) L 03/10/18 17:34 Potassium 4.8 mEq/L (3.5-5.1) 03/10/18 17:34 Chloride 100 mEq/L (98-107) 03/10/18 17:34 Carbon Dioxide 27.6 mEq/L (21.0-31.0) 03/10/18 17:34 Anion Gap 11.2 (7.0-16.0) 03/10/18 17:34 BUN 17 mg/dL (7-25) 03/10/18 17:34 Creatinine 0.6 mg/dL (0.6-1.2) 03/10/18 17:34 Est GFR ( Amer) TNP 03/10/18 17:34 Est GFR (Non-Af Amer) TNP 03/10/18 17:34 BUN/Creatinine Ratio 28.3 03/10/18 17:34 Glucose 96 mg/dL (70-105) 03/10/18 17:34 Calcium 9.4 mg/dL (8.6-10.3) 03/10/18 17:34 Total Bilirubin 0.4 mg/dL (0.3-1.0) 03/10/18 17:34 AST 23 U/L (13-39) 03/10/18 17:34 ALT 23 U/L (7-52) 03/10/18 17:34 Alkaline Phosphatase 100 U/L (34-104) 03/10/18 17:34 Troponin I < 0.01 ng/mL (0.01-0.05) L 03/05/18 20:00 B-Natriuretic Peptide 53.0 pg/mL (5.0-100.0) 03/05/18 20:00 Total Protein 7.3 gm/dL (6.0-8.3) 03/10/18 17:34 Albumin 4.2 gm/dL (3.7-5.3) 03/10/18 17:34 Globulin 3.1 gm/dL 03/10/18 17:34 Albumin/Globulin Ratio 1.4 (1.0-1.8) 03/10/18 17:34 Phenytoin 9.0 ug/ml (10.0-20.0) L 03/10/18 17:34 - Physical Exam Vitals and I&O: Vital Signs Temp 98.1 F 03/11/18 06:21 Pulse 86 03/11/18 06:21 Resp 20 03/11/18 06:21 BP 128/67 03/11/18 08:10 Pulse Ox 97 03/11/18 06:21 Intake & Output 03/10/18 03/11/18 03/11/18 18:59 06:59 18:59 Intake Total 1000 480 Output Total 3 Balance 1000 477 Intake: Oral 1000 480 Output: Stool 1 Urine/Stool Mix 2 Other: # Voids 3 # Bowel Movements 0 1 Active Medications: Current Medications Acetaminophen (Tylenol) 650 mg PO Q4H PRN PRN Reason: Mild Pain / Temp above 100 Stop: 05/04/18 22:16 Al Hydrox/Mg Hydrox/Simethicone (Maalox) 30 ml PO Q4H PRN PRN Reason: GI DISTRESS Stop: 05/04/18 22:16 Aripiprazole (Abilify) 5 mg PO DAILY [facility]; Protocol Stop: 05/08/18 08:59 Last Admin: 03/11/18 08:08 Dose: 5 mg Calcium/Vitamin D (Oscal W/Vitamin D) 1 tab PO DAILY [facility] Stop: 05/05/18 08:59 Last Admin: 03/11/18 08:08 Dose: 1 tab Divalproex Sodium (Depakote Sprinkle) 500 mg PO BID [facility]; Protocol Stop: 05/05/18 08:59 Last Admin: 03/11/18 08:07 Dose: 500 mg Docusate Sodium (Colace) 100 mg PO DAILY [facility] Stop: 05/05/18 08:59 Last Admin: 03/11/18 08:08 Dose: 100 mg Famotidine (Pepcid) 20 mg PO BIDAC [facility] Stop: 05/05/18 07:29 Last Admin: 03/11/18 06:37 Dose: 20 mg Furosemide (Lasix) 40 mg PO DAILY [facility] Stop: 05/05/18 08:59 Last Admin: 03/11/18 08:10 Dose: 40 mg Levothyroxine Sodium (Synthroid) 0.075 mg PO QDAC J[facility] Stop: 05/05/18 07:29 Last Admin: 03/11/18 06:37 Dose: 0.075 mg Lorazepam (Ativan) 0.5 mg PO Q4H PRN; Protocol PRN Reason: Anxiety/Agitation Stop: 05/04/18 22:49 Last Admin: 03/05/18 23:50 Dose: 0.5 mg Magnesium Hydroxide (Milk Of Magnesia) 30 ml PO HS PRN PRN Reason: Constipation Miscellaneous (Clinical Monitoring) 1 ea [facility] DAILY PRN PRN Reason: RENAL Stop: 05/05/18 08:59 Multivitamins/Vitamin C (Theragran) 1 tab PO DAILY [facility] Stop: 05/05/18 08:59 Last Admin: 03/11/18 08:07 Dose: 1 tab Nitrofurantoin Macrocrystals (Macrobid) 100 mg PO BID [facility]; Protocol Stop: 03/16/18 08:59 Last Admin: 03/11/18 08:09 Dose: 100 mg Phenytoin (Dilantin) 200 mg PO BID [facility] Stop: 05/05/18 08:59 Last Admin: 03/11/18 08:07 Dose: 200 mg Phenytoin (Dilantin) 50 mg PO HS [facility] Stop: 05/09/18 00:00 Last Admin: 03/11/18 00:51 Dose: 50 mg Potassium Chloride (Klor-Con) 40 meq PO DAILY [facility] Stop: 05/05/18 08:59 Last Admin: 03/11/18 08:09 Dose: 40 meq Rivaroxaban (Xarelto) 20 mg PO HS [facility] Stop: 05/04/18 22:59 Last Admin: 03/10/18 20:45 Dose: 20 mg Vitamin D (Vitamin D3) 2,000 iu PO DAILY [facility] Stop: 05/05/18 08:59 Last Admin: 03/11/18 08:07 Dose: 2,000 iu Zolpidem Tartrate (Ambien) 5 mg PO HS PRN PRN Reason: Insomnia Stop: 05/04/18 22:16 Last Admin: 03/10/18 20:45 Dose: 5 mg General: demented HEENT: NC/AT, PERRLA Neck: Supple Lungs: CTAB Cardiovascular: RRR, Normal S1, Normal S2, without murmur Abdomen: soft, non-tender, non-distended Extremities: excoriation Neurological: alert Internal Medicine Assmt/Plan - Assessment Assessment: - Assessment Assessment: seizures schizoaffective recent uti dvt left lower extremity hypothyroidism htn obesity - Plan Plan: seizure precautions o2 as needed continue current plan of care - Plan Plan: cpm dilantin level noted and adjusted diya rn Nutritional Asmnt/Malnutr-PDOC - Dietary Evaluation Malnutrition Findings (Please click <Entered> for more info): Nutritional Asmnt/Malnutrition Start: 03/09/18 14: 19 Text: Status: Complete Freq: Protocol: Document 03/09/18 14:19 MARJORIE (Rec: 03/09/18 14:29 [email or web address]) Nutritional Asmnt/Malnutrition Patient General Information Nutritional Screening Moderate Risk Diagnosis psychosis Pertinent Medical Hx/Surgical Hx seizure, DVT, hypothyroidism, HTN Subjective Information Pt seen eating lunch in dining room at time of visit. Pt was eating well. Per EMR, PO intake 100%. Current Diet Order/ Nutrition Support [facility] Pertinent Medications oscal w/vit D, colace, pepcid, lasix, synthorid, theragran, kcl, vit D3 Pertinent Labs 03/05 nutrition labs WNL Nutritional Hx/Data Height 1.52 m Height (Calculated Centimeters) 152.4 Current Weight (lbs) 81.647 kg Weight (Calculated Kilograms) 81.6 Weight (Calculated Grams) 07415.6 [place] Body Weight 100 Body Mass Index (BMI) 35.2 Weight Status Obese GI Symptoms GI Symptoms None Last BM 03/07 Difficult in: None Skin Integrity/Comment: dryness Current %PO Good (75-100%) Estimated Nutritional Goals BEE in Kcals: Adj wt of IBW Calories/Kcals/Kg 25-30 Kcals Calculated 8750-2944 Protein: Adj wt of IBW Protein g/k Protein Calculated 55 Fluid: ml 1375-1650ml (1ml/kcal) Nutritional Problem No current Nutrition Prob Problem N/A Malnutrition Alert Is there a minimum of two criteria No selected? Query Text:Check all the applicable criteria. A minimum of two criteria are recommended for diagnosis of either severe or non-severe malnutrition. Malnutrition Related to Morbid Obesity Malnutrition related to morbid obesity No Intervention/Recommendation Comments 1. Continue with [facility] diet as ordered. 2. Monitor PO intake, wt, labs and skin integrity 3. F/U as low risk in 7 days, 03/15 Expected Outcomes/Goals Expected Outcomes/Goals 1. PO intake to meet at least 75% of nutritional needs. 2. Wt stability, skin to remain intact, labs to approach WNL.
--- NOTE | 2018-03-11 15:34 | Progress Notes ---
DATE: 03/11/2018 SUBJECTIVE: Staff was spoken to. The patient is interviewed. Mood is noted to be anxious. The patient is reported to have had a seizure that lasted for 45 seconds and patient has been given the Dilantin, the dose has been reviewed and the patient has been placed on close monitoring at this time. The patient's phenytoin level is noted to be 9 and is slow and Dr. Lucio has adjusted the dose of the medication. ASSESSMENT: The patient is still psychotic and is anxious today. PLAN: To continue the patient with the supportive therapy and followup. JOB# [id number]
[2018-03-12] MEDS: Levothyroxine 0.075 Mg Tab PO SCH (06:50)
[2018-03-12] MEDS: Potassium Chloride 20 mEq ER Tab PO SCH (10:00)
[2018-03-12] MEDS: Calcium Carb/Vit D 500 mg/200 U Tab PO SCH (10:06)
[2018-03-12] MEDS: Vitamin D3 2,000 IU SGL PO SCH (10:06)
[2018-03-12] MEDS: Multivitamin Tab PO SCH (10:12)
--- NOTE | 2018-03-12 11:35 | Internal Medicine Prog Note ---
Internal Medicine Subjective - Subjective Service Date: 03/12/18 Patient is:: awake, verbal, alexis chair Per staff patient has:: no adverse event, no episodes of fall, poor appetite, tolerating meds Internal Medicine Objective - Results Result Diagrams: 03/05/18 20:00 03/10/18 17:34 Recent Labs: Laboratory Last Values WBC 8.7 Th/cmm (4.8-10.8) 03/05/18 20:00 RBC 5.02 Mil/cmm (3.80-5.20) 03/05/18 20:00 Hgb 16.1 gm/dL (12-16) 03/05/18 20:00 Hct 47.4 % (41.0-60) 03/05/18 20:00 MCV 94.4 fl (81-100) 03/05/18 20:00 MCH 32.1 pg (27.0-31.0) H 03/05/18 20:00 MCHC Differential 34.0 pg (28.0-36.0) 03/05/18 20:00 RDW 13.6 % (11.5-20.0) 03/05/18 20:00 Plt Count 363 Th/cmm (150-400) 03/05/18 20:00 MPV 8.3 fl 03/05/18 20:00 Neutrophils % 66.9 % (40.0-80.0) 03/05/18 20:00 Lymphocytes % 20.5 % (20.0-50.0) 03/05/18 20:00 Monocytes % 9.5 % (2.0-10.0) 03/05/18 20:00 Eosinophils % 2.8 % (0.0-5.0) 03/05/18 20:00 Basophils % 0.3 % (0.0-2.0) 03/05/18 20:00 Sodium 134 mEq/L (136-145) L 03/10/18 17:34 Potassium 4.8 mEq/L (3.5-5.1) 03/10/18 17:34 Chloride 100 mEq/L (98-107) 03/10/18 17:34 Carbon Dioxide 27.6 mEq/L (21.0-31.0) 03/10/18 17:34 Anion Gap 11.2 (7.0-16.0) 06/23/18 17:34 BUN 17 mg/dL (7-25) 03/10/18 17:34 Creatinine 0.6 mg/dL (0.6-1.2) 03/10/18 17:34 Est GFR ( Amer) TNP 03/10/18 17:34 Est GFR (Non-Af Amer) TNP 03/10/18 17:34 BUN/Creatinine Ratio 28.3 03/10/18 17:34 Glucose 96 mg/dL (70-105) 03/10/18 17:34 Calcium 9.4 mg/dL (8.6-10.3) 03/10/18 17:34 Total Bilirubin 0.4 mg/dL (0.3-1.0) 03/10/18 17:34 AST 23 U/L (13-39) 03/10/18 17:34 ALT 23 U/L (7-52) 03/10/18 17:34 Alkaline Phosphatase 100 U/L (34-104) 03/10/18 17:34 Troponin I < 0.01 ng/mL (0.01-0.05) L 03/05/18 20:00 B-Natriuretic Peptide 53.0 pg/mL (5.0-100.0) 03/05/18 20:00 Total Protein 7.3 gm/dL (6.0-8.3) 03/10/18 17:34 Albumin 4.2 gm/dL (3.7-5.3) 03/10/18 17:34 Globulin 3.1 gm/dL 03/10/18 17:34 Albumin/Globulin Ratio 1.4 (1.0-1.8) 03/10/18 17:34 Phenytoin 9.0 ug/ml (10.0-20.0) L 03/10/18 17:34 - Physical Exam Vitals and I&O: Vital Signs Temp 96.9 F 03/12/18 06:07 Pulse 74 03/12/18 06:07 Resp 18 03/12/18 06:07 BP 124/59 03/12/18 10:07 Pulse Ox 97 03/12/18 06:07 Intake & Output 03/11/18 03/12/18 03/12/18 18:59 06:59 18:59 Intake Total 1200 300 Output Total 1 Balance 1200 299 Intake: Oral 1200 300 Output: Urine/Stool Mix 1 Other: # Voids 3 1 # Bowel Movements 0 Active Medications: Current Medications Acetaminophen (Tylenol) 650 mg PO Q4H PRN PRN Reason: Mild Pain / Temp above 100 Stop: 05/04/18 22:16 Al Hydrox/Mg Hydrox/Simethicone (Maalox) 30 ml PO Q4H PRN PRN Reason: GI DISTRESS Stop: 05/04/18 22:16 Aripiprazole (Abilify) 5 mg PO DAILY [facility]; Protocol Stop: 05/08/18 08:59 Last Admin: 03/12/18 10:07 Dose: 5 mg Calcium/Vitamin D (Oscal W/Vitamin D) 1 tab PO DAILY [facility] Stop: 05/05/18 08:59 Last Admin: 03/12/18 10:06 Dose: 1 tab Divalproex Sodium (Depakote Sprinkle) 500 mg PO BID [facility]; Protocol Stop: 05/05/18 08:59 Last Admin: 03/12/18 10:05 Dose: 500 mg Docusate Sodium (Colace) 100 mg PO DAILY [facility] Stop: 05/05/18 08:59 Last Admin: 03/12/18 10:05 Dose: 100 mg Famotidine (Pepcid) 20 mg PO BIDAC [facility] Stop: 05/05/18 07:29 Last Admin: 03/12/18 06:50 Dose: 20 mg Furosemide (Lasix) 40 mg PO DAILY [facility] Stop: 05/05/18 08:59 Last Admin: 03/12/18 10:07 Dose: 40 mg Levothyroxine Sodium (Synthroid) 0.075 mg PO QDAC [facility] Stop: 05/05/18 07:29 Last Admin: 03/12/18 06:50 Dose: 0.075 mg Lorazepam (Ativan) 0.5 mg PO Q4H PRN; Protocol PRN Reason: Anxiety/Agitation Stop: 05/04/18 22:49 Last Admin: 03/05/18 23:50 Dose: 0.5 mg Magnesium Hydroxide (Milk Of Magnesia) 30 ml PO HS PRN PRN Reason: Constipation Miscellaneous (Clinical Monitoring) 1 ea [facility] DAILY PRN PRN Reason: RENAL Stop: 05/05/18 08:59 Multivitamins/Vitamin C (Theragran) 1 tab PO DAILY [facility] Stop: 05/05/18 08:59 Last Admin: 03/12/18 10:12 Dose: 1 tab Nitrofurantoin Macrocrystals (Macrobid) 100 mg PO BID [facility]; Protocol Stop: 03/16/18 08:59 Last Admin: 03/12/18 10:07 Dose: 100 mg Phenytoin (Dilantin) 200 mg PO BID [facility] Stop: 05/05/18 08:59 Last Admin: 03/12/18 09:00 Dose: 200 mg Phenytoin (Dilantin) 50 mg PO HS [facility] Stop: 05/09/18 00:00 Last Admin: 03/11/18 20:36 Dose: 50 mg Potassium Chloride (Klor-Con) 40 meq PO DAILY [facility] Stop: 05/05/18 08:59 Last Admin: 03/12/18 10:00 Dose: 40 meq Rivaroxaban (Xarelto) 20 mg PO HS [facility] Stop: 05/04/18 22:59 Last Admin: 03/11/18 20:35 Dose: 20 mg Vitamin D (Vitamin D3) 2,000 iu PO DAILY [facility] Stop: 05/05/18 08:59 Last Admin: 03/12/18 10:06 Dose: 2,000 iu Zolpidem Tartrate (Ambien) 5 mg PO HS PRN PRN Reason: Insomnia Stop: 05/04/18 22:16 Last Admin: 03/11/18 20:36 Dose: 5 mg General: demented HEENT: NC/AT, PERRLA Neck: Supple Lungs: CTAB Cardiovascular: RRR, Normal S1, Normal S2, without murmur Abdomen: soft, non-tender, non-distended Extremities: excoriation Neurological: alert Internal Medicine Assmt/Plan - Assessment Assessment: seizures schizoaffective recent uti dvt left lower extremity hypothyroidism htn obesity - Plan Plan: seizure precautions o2 as needed continue current plan of care Nutritional Asmnt/Malnutr-PDOC - Dietary Evaluation Malnutrition Findings (Please click <Entered> for more info): Nutritional Asmnt/Malnutrition Start: 03/09/18 14: 19 Text: Status: Complete Freq: Protocol: Document 03/09/18 14:19 LCPERCYG (Rec: 03/09/18 14:29 [email or web address] [email or web address]) Nutritional Asmnt/Malnutrition Patient General Information Nutritional Screening Moderate Risk Diagnosis psychosis Pertinent Medical Hx/Surgical Hx seizure, DVT, hypothyroidism, HTN Subjective Information Pt seen eating lunch in dining room at time of visit. Pt was eating well. Per EMR, PO intake 100%. Current Diet Order/ Nutrition Support [facility] Pertinent Medications oscal w/vit D, colace, pepcid, lasix, synthorid, theragran, kcl, vit D3 Pertinent Labs 03/05 nutrition labs WNL Nutritional Hx/Data Height 5 ft Height (Calculated Centimeters) 152.4 Current Weight (lbs) 180 lb Weight (Calculated Kilograms) 81.6 Weight (Calculated Grams) 34170.6 [place] Body Weight 100 Body Mass Index (BMI) 35.2 Weight Status Obese GI Symptoms GI Symptoms None Last BM 03/07 Difficult in: None Skin Integrity/Comment: dryness Current %PO Good (75-100%) Estimated Nutritional Goals BEE in Kcals: Adj wt of IBW Calories/Kcals/Kg 25-30 Kcals Calculated 1020-3254 Protein: Adj wt of IBW Protein g/k Protein Calculated 55 Fluid: ml 1375-1650ml (1ml/kcal) Nutritional Problem No current Nutrition Prob Problem N/A Malnutrition Alert Is there a minimum of two criteria No selected? Query Text:Check all the applicable criteria. A minimum of two criteria are recommended for diagnosis of either severe or non-severe malnutrition. Malnutrition Related to Morbid Obesity Malnutrition related to morbid obesity No Intervention/Recommendation Comments 1. Continue with [facility] soft [facility] diet as ordered. 2. Monitor PO intake, wt, labs and skin integrity 3. F/U as low risk in 7 days, 03/15 Expected Outcomes/Goals Expected Outcomes/Goals 1. PO intake to meet at least 75% of nutritional needs. 2. Wt stability, skin to remain intact, labs to approach WNL.
--- NOTE | 2018-03-13 05:11 | Progress Notes ---
DATE: 03/12/2018 PSYCHIATRIC PROGRESS NOTE SUBJECTIVE: Staff was spoken to. The patient is interviewed. Mood is noted to be irritable. Affect is constricted. The patient is very dysphoric today. The patient is getting easily agitated and anxious. The patient is pacing most of the time. ASSESSMENT: The patient is still depressed, confused, and demented. PLAN: To continue the patient with the supportive therapy and followup. [facility]# [id number]
[2018-03-13] MEDS: Levothyroxine 0.075 Mg Tab PO SCH (06:46)
[2018-03-13] MEDS: Multivitamin Tab PO SCH (09:37)
[2018-03-13] MEDS: Vitamin D3 2,000 IU SGL PO SCH (09:38)
[2018-03-13] MEDS: Potassium Chloride 20 mEq ER Tab PO SCH (09:38)
[2018-03-13] MEDS: Calcium Carb/Vit D 500 mg/200 U Tab PO SCH (09:38)
--- NOTE | 2018-03-13 15:04 | Internal Medicine Prog Note ---
Internal Medicine Subjective - Subjective Service Date: 03/13/18 Patient is:: awake, verbal, alexis chair Per staff patient has:: no adverse event, no episodes of fall, poor appetite, tolerating meds Internal Medicine Objective - Results Result Diagrams: 03/05/18 20:00 03/10/18 17:34 Recent Labs: Laboratory Last Values WBC 8.7 Th/cmm (4.8-10.8) 03/05/18 20:00 RBC 5.02 Mil/cmm (3.80-5.20) 03/05/18 20:00 Hgb 16.1 gm/dL (12-16) 03/05/18 20:00 Hct 47.4 % (41.0-60) 03/05/18 20:00 MCV 94.4 fl (81-100) 03/05/18 20:00 MCH 32.1 pg (27.0-31.0) H 03/05/18 20:00 MCHC Differential 34.0 pg (28.0-36.0) 03/05/18 20:00 RDW 13.6 % (11.5-20.0) 03/05/18 20:00 Plt Count 363 Th/cmm (150-400) 03/05/18 20:00 MPV 8.3 fl 03/05/18 20:00 Neutrophils % 66.9 % (40.0-80.0) 03/05/18 20:00 Lymphocytes % 20.5 % (20.0-50.0) 03/05/18 20:00 Monocytes % 9.5 % (2.0-10.0) 03/05/18 20:00 Eosinophils % 2.8 % (0.0-5.0) 03/05/18 20:00 Basophils % 0.3 % (0.0-2.0) 03/05/18 20:00 Sodium 134 mEq/L (136-145) L 03/10/18 17:34 Potassium 4.8 mEq/L (3.5-5.1) 03/10/18 17:34 Chloride 100 mEq/L (98-107) 03/10/18 17:34 Carbon Dioxide 27.6 mEq/L (21.0-31.0) 03/10/18 17:34 Anion Gap 11.2 (7.0-16.0) 06/23/18 17:34 BUN 17 mg/dL (7-25) 03/10/18 17:34 Creatinine 0.6 mg/dL (0.6-1.2) 03/10/18 17:34 Est GFR ( Amer) TNP 03/10/18 17:34 Est GFR (Non-Af Amer) TNP 03/10/18 17:34 BUN/Creatinine Ratio 28.3 03/10/18 17:34 Glucose 96 mg/dL (70-105) 03/10/18 17:34 Calcium 9.4 mg/dL (8.6-10.3) 03/10/18 17:34 Total Bilirubin 0.4 mg/dL (0.3-1.0) 03/10/18 17:34 AST 23 U/L (13-39) 03/10/18 17:34 ALT 23 U/L (7-52) 03/10/18 17:34 Alkaline Phosphatase 100 U/L (34-104) 03/10/18 17:34 Troponin I < 0.01 ng/mL (0.01-0.05) L 03/05/18 20:00 B-Natriuretic Peptide 53.0 pg/mL (5.0-100.0) 03/05/18 20:00 Total Protein 7.3 gm/dL (6.0-8.3) 03/10/18 17:34 Albumin 4.2 gm/dL (3.7-5.3) 03/10/18 17:34 Globulin 3.1 gm/dL 03/10/18 17:34 Albumin/Globulin Ratio 1.4 (1.0-1.8) 03/10/18 17:34 Phenytoin 9.0 ug/ml (10.0-20.0) L 03/10/18 17:34 - Physical Exam Vitals and I&O: Vital Signs Temp 97.7 F 03/13/18 14:57 Pulse 79 03/13/18 14:57 Resp 18 03/13/18 14:57 BP 111/60 03/13/18 14:57 Pulse Ox 95 03/13/18 14:57 Intake & Output 03/12/18 03/13/18 03/13/18 18:59 06:59 18:59 Intake Total 300 Balance 300 Intake: Oral 300 Other: # Voids 1 # Bowel Movements 0 Active Medications: Current Medications Acetaminophen (Tylenol) 650 mg PO Q4H PRN PRN Reason: Mild Pain / Temp above 100 Stop: 05/04/18 22:16 Al Hydrox/Mg Hydrox/Simethicone (Maalox) 30 ml PO Q4H PRN PRN Reason: GI DISTRESS Stop: 05/04/18 22:16 Aripiprazole (Abilify) 5 mg PO DAILY [facility]; Protocol Stop: 05/08/18 08:59 Last Admin: 03/13/18 09:37 Dose: 5 mg Calcium/Vitamin D (Oscal W/Vitamin D) 1 tab PO DAILY [facility] Stop: 05/05/18 08:59 Last Admin: 03/13/18 09:38 Dose: 1 tab Divalproex Sodium (Depakote Sprinkle) 500 mg PO BID [facility]; Protocol Stop: 05/05/18 08:59 Last Admin: 03/13/18 09:37 Dose: 500 mg Docusate Sodium (Colace) 100 mg PO DAILY [facility] Stop: 05/05/18 08:59 Last Admin: 03/13/18 09:39 Dose: Not Given Famotidine (Pepcid) 20 mg PO BIDAC [facility] Stop: 05/05/18 07:29 Last Admin: 03/13/18 06:46 Dose: 20 mg Furosemide (Lasix) 40 mg PO DAILY [facility] Stop: 05/05/18 08:59 Last Admin: 03/13/18 09:39 Dose: 40 mg Levothyroxine Sodium (Synthroid) 0.075 mg PO QDAC [facility] Stop: 05/05/18 07:29 Last Admin: 03/13/18 06:46 Dose: 0.075 mg Lorazepam (Ativan) 0.5 mg PO Q4H PRN; Protocol PRN Reason: Anxiety/Agitation Stop: 05/04/18 22:49 Last Admin: 03/13/18 02:26 Dose: 0.5 mg Magnesium Hydroxide (Milk Of Magnesia) 30 ml PO HS PRN PRN Reason: Constipation Miscellaneous (Clinical Monitoring) 1 ea MC DAILY PRN PRN Reason: RENAL Stop: 05/05/18 08:59 Multivitamins/Vitamin C (Theragran) 1 tab PO DAILY [facility] Stop: 05/05/18 08:59 Last Admin: 03/13/18 09:37 Dose: 1 tab Nitrofurantoin Macrocrystals (Macrobid) 100 mg PO BID [facility]; Protocol Stop: 03/16/18 08:59 Last Admin: 03/13/18 09:38 Dose: 100 mg Phenytoin (Dilantin) 200 mg PO BID [facility] Stop: 05/05/18 08:59 Last Admin: 03/13/18 09:35 Dose: 200 mg Phenytoin (Dilantin) 50 mg PO HS [facility] Stop: 05/09/18 00:00 Last Admin: 03/12/18 20:30 Dose: 50 mg Potassium Chloride (Klor-Con) 40 meq PO DAILY [facility] Stop: 05/05/18 08:59 Last Admin: 03/13/18 09:38 Dose: 40 meq Rivaroxaban (Xarelto) 20 mg PO HS [facility] Stop: 05/04/18 22:59 Last Admin: 03/12/18 20:31 Dose: 20 mg Vitamin D (Vitamin D3) 2,000 iu PO DAILY [facility] Stop: 05/05/18 08:59 Last Admin: 03/13/18 09:38 Dose: 2,000 iu Zolpidem Tartrate (Ambien) 5 mg PO HS PRN PRN Reason: Insomnia Stop: 05/04/18 22:16 Last Admin: 03/12/18 20:31 Dose: 5 mg General: demented HEENT: NC/AT, PERRLA Neck: Supple Lungs: CTAB Cardiovascular: RRR, Normal S1, Normal S2, without murmur Abdomen: soft, non-tender, non-distended Extremities: excoriation Neurological: alert Internal Medicine Assmt/Plan - Assessment Assessment: seizures schizoaffective recent uti dvt left lower extremity hypothyroidism htn obesity - Plan Plan: seizure precautions o2 as needed continue current plan of care Nutritional Asmnt/Malnutr-PDOC - Dietary Evaluation Malnutrition Findings (Please click <Entered> for more info): Nutritional Asmnt/Malnutrition Start: 03/09/18 14: 19 Text: Status: Complete Freq: Protocol: Document 03/09/18 14:19 LCHENG (Rec: 03/09/18 14:29 LCHENG [id number]) Nutritional Asmnt/Malnutrition Patient General Information Nutritional Screening Moderate Risk Diagnosis psychosis Pertinent Medical Hx/Surgical Hx seizure, DVT, hypothyroidism, HTN Subjective Information Pt seen eating lunch in dining room at time of visit. Pt was eating well. Per EMR, PO intake 100%. Current Diet Order/ Nutrition Support [facility] soft ground Pertinent Medications oscal w/vit D, colace, pepcid, lasix, synthorid, theragran, kcl, vit D3 Pertinent Labs 03/05 nutrition labs WNL Nutritional Hx/Data Height 5 ft Height (Calculated Centimeters) 152.4 Current Weight (lbs) 180 lb Weight (Calculated Kilograms) 81.6 Weight (Calculated Grams) 25706.6 [place] Body Weight 100 Body Mass Index (BMI) 35.2 Weight Status Obese GI Symptoms GI Symptoms None Last BM 03/07 Difficult in: None Skin Integrity/Comment: dryness Current %PO Good (75-100%) Estimated Nutritional Goals BEE in Kcals: Adj wt of IBW Calories/Kcals/Kg 25-30 Kcals Calculated 7668-0692 Protein: Adj wt of IBW Protein g/k Protein Calculated 55 Fluid: ml 1375-1650ml (1ml/kcal) Nutritional Problem No current Nutrition Prob Problem N/A Malnutrition Alert Is there a minimum of two criteria No selected? Query Text:Check all the applicable criteria. A minimum of two criteria are recommended for diagnosis of either severe or non-severe malnutrition. Malnutrition Related to Morbid Obesity Malnutrition related to morbid obesity No Intervention/Recommendation Comments 1. Continue with [facility] soft ground diet as ordered. 2. Monitor PO intake, wt, labs and skin integrity 3. F/U as low risk in 7 days, 03/15 Expected Outcomes/Goals Expected Outcomes/Goals 1. PO intake to meet at least 75% of nutritional needs. 2. Wt stability, skin to remain intact, labs to approach WNL.
--- NOTE | 2018-03-14 02:40 | Progress Notes ---
DATE: 03/13/2018 PSYCHIATRIC PROGRESS NOTE SUBJECTIVE: Staff was spoken to. The patient is interviewed. Mood is noted to be less irritable. Paranoia is noted, but the patient denies any command hallucinations. Insight and judgment are noted to be improving at this time. No side effects to medications are noted. ASSESSMENT: The patient's psychosis is resolving. PLAN: To continue the patient with the supportive therapy. I encouraged the patient to verbalize the concerns rather than to act out. JOB# [id number]
[2018-03-14] MEDS: Levothyroxine 0.075 Mg Tab PO SCH (06:34)
[2018-03-14] MEDS: Multivitamin Tab PO SCH (08:15)
[2018-03-14] MEDS: Calcium Carb/Vit D 500 mg/200 U Tab PO SCH (08:15)
[2018-03-14] MEDS: Potassium Chloride 20 mEq ER Tab PO SCH ×2 (08:16→08:56)
[2018-03-14] MEDS: Vitamin D3 2,000 IU SGL PO SCH (08:16)
[2018-03-14 09:54] LABS: ALB/GLOB RATIO 1.2 (1.0-1.8); ALBUMIN 3.7 gm/dL (3.7-5.3); ALKALINE PHOSPHATASE 111 U/L (34-104); ANION GAP 13.9 (7.0-16.0); BILIRUBIN,TOTAL 0.5 mg/dL (0.3-1.0); BUN - UREA NITROGEN 14 mg/dL (7-25); CARBON DIOXIDE 21.2 mEq/L (21.0-31.0); CHLORIDE 105 mEq/L (98-107); CREATININE - SERUM 0.7 mg/dL (0.6-1.2); GLUCOSE 106 mg/dL (70-105); POTASSIUM SERUM 4.1 mEq/L (3.5-5.1); SGOT 20 U/L (13-39); SGPT/ALT 14 U/L (7-52); SODIUM SERUM 136 mEq/L (136-145); TOTAL PROTEIN,SERUM 6.8 gm/dL (6.0-8.3)
--- NOTE | 2018-03-14 11:50 | Progress Notes ---
DATE: 03/14/2018 SUBJECTIVE: Staff was spoken to. The patient is interviewed. Mood is noted to be less irritable. Paranoia is noted, but the patient is denying any command hallucinations. Insight and judgment at this time are noted to be improving. No major side effects to the medications are noted. ASSESSMENT: The patient's psychosis is resolving. PLAN: To continue the patient with the current medications. I encouraged the patient to verbalize the concerns rather than to act out. JOB# [id number]
--- NOTE | 2018-03-14 18:11 | Internal Medicine Prog Note ---
Internal Medicine Subjective - Subjective Service Date: 03/14/18 Patient is:: awake, verbal, alexis chair Per staff patient has:: no adverse event, no episodes of fall, poor appetite, tolerating meds Internal Medicine Objective - Results Result Diagrams: 03/05/18 20:00 03/14/18 09:24 Recent Labs: Laboratory Last Values WBC 8.7 Th/cmm (4.8-10.8) 03/05/18 20:00 RBC 5.02 Mil/cmm (3.80-5.20) 03/05/18 20:00 Hgb 16.1 gm/dL (12-16) 03/05/18 20:00 Hct 47.4 % (41.0-60) 03/05/18 20:00 MCV 94.4 fl (81-100) 03/05/18 20:00 MCH 32.1 pg (27.0-31.0) H 03/05/18 20:00 MCHC Differential 34.0 pg (28.0-36.0) 03/05/18 20:00 RDW 13.6 % (11.5-20.0) 03/05/18 20:00 Plt Count 363 Th/cmm (150-400) 03/05/18 20:00 MPV 8.3 fl 03/05/18 20:00 Neutrophils % 66.9 % (40.0-80.0) 03/05/18 20:00 Lymphocytes % 20.5 % (20.0-50.0) 03/05/18 20:00 Monocytes % 9.5 % (2.0-10.0) 03/05/18 20:00 Eosinophils % 2.8 % (0.0-5.0) 03/05/18 20:00 Basophils % 0.3 % (0.0-2.0) 03/05/18 20:00 Sodium 136 mEq/L (136-145) 03/14/18 09:24 Potassium 4.1 mEq/L (3.5-5.1) 03/14/18 09:24 Chloride 105 mEq/L (98-107) 03/14/18 09:24 Carbon Dioxide 21.2 mEq/L (21.0-31.0) 03/14/18 09:24 Anion Gap 13.9 (7.0-16.0) 03/14/18 09:24 BUN 14 mg/dL (7-25) 03/14/18 09:24 Creatinine 0.7 mg/dL (0.6-1.2) 03/14/18 09:24 Est GFR ( Amer) TNP 03/14/18 09:24 Est GFR (Non-Af Amer) TNP 03/14/18 09:24 BUN/Creatinine Ratio 20.0 03/14/18 09:24 Glucose 106 mg/dL (70-105) H 03/14/18 09:24 Calcium 9.0 mg/dL (8.6-10.3) 03/14/18 09:24 Total Bilirubin 0.5 mg/dL (0.3-1.0) 03/14/18 09:24 AST 20 U/L (13-39) 03/14/18 09:24 ALT 14 U/L (7-52) 03/14/18 09:24 Alkaline Phosphatase 111 U/L (34-104) H 03/14/18 09:24 Troponin I < 0.01 ng/mL (0.01-0.05) L 03/05/18 20:00 B-Natriuretic Peptide 53.0 pg/mL (5.0-100.0) 03/05/18 20:00 Total Protein 6.8 gm/dL (6.0-8.3) 03/14/18 09:24 Albumin 3.7 gm/dL (3.7-5.3) 03/14/18 09:24 Globulin 3.1 gm/dL 03/14/18 09:24 Albumin/Globulin Ratio 1.2 (1.0-1.8) 03/14/18 09:24 Phenytoin 9.0 ug/ml (10.0-20.0) L 03/10/18 17:34 - Physical Exam Vitals and I&O: Vital Signs Temp 97.0 F 03/14/18 14:53 Pulse 82 03/14/18 14:53 Resp 20 03/14/18 14:53 BP 108/53 03/14/18 14:53 Pulse Ox 97 03/14/18 14:53 Intake & Output 03/13/18 03/14/18 03/14/18 18:59 06:59 18:59 Intake Total 810 Balance 810 Intake: Oral 810 Other: # Voids 2 Active Medications: Current Medications Acetaminophen (Tylenol) 650 mg PO Q4H PRN PRN Reason: Mild Pain / Temp above 100 Stop: 05/04/18 22:16 Al Hydrox/Mg Hydrox/Simethicone (Maalox) 30 ml PO Q4H PRN PRN Reason: GI DISTRESS Stop: 05/04/18 22:16 Aripiprazole (Abilify) 5 mg PO DAILY JESSENIA; Protocol Stop: 05/08/18 08:59 Last Admin: 03/14/18 08:17 Dose: 5 mg Calcium/Vitamin D (Oscal W/Vitamin D) 1 tab PO DAILY JESSENIA Stop: 05/05/18 08:59 Last Admin: 03/14/18 08:15 Dose: 1 tab Divalproex Sodium (Depakote Sprinkle) 500 mg PO BID JESSENIA; Protocol Stop: 05/05/18 08:59 Last Admin: 03/14/18 17:41 Dose: 500 mg Docusate Sodium (Colace) 100 mg PO DAILY JESSENIA Stop: 05/05/18 08:59 Last Admin: 03/14/18 08:16 Dose: 100 mg Famotidine (Pepcid) 20 mg PO BIDAC JESSENIA Stop: 05/05/18 07:29 Last Admin: 03/14/18 17:40 Dose: 20 mg Furosemide (Lasix) 40 mg PO DAILY JESSENIA Stop: 05/05/18 08:59 Last Admin: 03/14/18 08:15 Dose: 40 mg Levothyroxine Sodium (Synthroid) 0.075 mg PO QDAC JESSENIA Stop: 05/05/18 07:29 Last Admin: 03/14/18 06:34 Dose: 0.075 mg Lorazepam (Ativan) 0.5 mg PO Q4H PRN; Protocol PRN Reason: Anxiety/Agitation Stop: 05/04/18 22:49 Last Admin: 03/13/18 02:26 Dose: 0.5 mg Magnesium Hydroxide (Milk Of Magnesia) 30 ml PO HS PRN PRN Reason: Constipation Miscellaneous (Clinical Monitoring) 1 ea MC DAILY PRN PRN Reason: RENAL Stop: 05/05/18 08:59 Multivitamins/Vitamin C (Theragran) 1 tab PO DAILY JESSENIA Stop: 05/05/18 08:59 Last Admin: 03/14/18 08:15 Dose: 1 tab Phenytoin (Dilantin) 200 mg PO BID JESSENIA Stop: 05/05/18 08:59 Last Admin: 03/14/18 17:40 Dose: 200 mg Phenytoin (Dilantin) 50 mg PO HS JESSENIA Stop: 05/09/18 00:00 Last Admin: 03/13/18 20:41 Dose: 50 mg Potassium Chloride (Klor-Con) 20 meq PO DAILY JESSENIA Stop: 05/14/18 08:59 Rivaroxaban (Xarelto) 20 mg PO HS JESSENIA Stop: 05/04/18 22:59 Last Admin: 03/13/18 20:41 Dose: 20 mg Vitamin D (Vitamin D3) 2,000 iu PO DAILY JESSENIA Stop: 05/05/18 08:59 Last Admin: 03/14/18 08:16 Dose: 2,000 iu Zolpidem Tartrate (Ambien) 5 mg PO HS PRN PRN Reason: Insomnia Stop: 05/04/18 22:16 Last Admin: 03/13/18 20:41 Dose: 5 mg General: demented HEENT: NC/AT, PERRLA Neck: Supple Lungs: CTAB Cardiovascular: RRR, Normal S1, Normal S2, without murmur Abdomen: soft, non-tender, non-distended Extremities: excoriation Neurological: alert Internal Medicine Assmt/Plan - Assessment Assessment: seizures schizoaffective recent uti dvt left lower extremity hypothyroidism htn obesity - Plan Plan: seizure precautions o2 as needed continue current plan of care Nutritional Asmnt/Malnutr-PDOC - Dietary Evaluation Malnutrition Findings (Please click <Entered> for more info): Nutritional Asmnt/Malnutrition Start: 03/09/18 14: 19 Text: Status: Complete Freq: Protocol: Document 03/09/18 14:19 LCHENG (Rec: 03/09/18 14:29 [email or web address]) Nutritional Asmnt/Malnutrition Patient General Information Nutritional Screening Moderate Risk Diagnosis psychosis Pertinent Medical Hx/Surgical Hx seizure, DVT, hypothyroidism, HTN Subjective Information Pt seen eating lunch in dining room at time of visit. Pt was eating well. Per EMR, PO intake 100%. Current Diet Order/ Nutrition Support [facility] Pertinent Medications oscal w/vit D, colace, pepcid, lasix, synthorid, theragran, kcl, vit D3 Pertinent Labs 03/05 nutrition labs WNL Nutritional Hx/Data Height 5 ft Height (Calculated Centimeters) 152.4 Current Weight (lbs) 180 lb Weight (Calculated Kilograms) 81.6 Weight (Calculated Grams) 49780.6 [place] Body Weight 100 Body Mass Index (BMI) 35.2 Weight Status Obese GI Symptoms GI Symptoms None Last BM 03/07 Difficult in: None Skin Integrity/Comment: dryness Current %PO Good (75-100%) Estimated Nutritional Goals BEE in Kcals: Adj wt of IBW Calories/Kcals/Kg 25-30 Kcals Calculated 1434-2816 Protein: Adj wt of IBW Protein g/k Protein Calculated 55 Fluid: ml 1375-1650ml (1ml/kcal) Nutritional Problem No current Nutrition Prob Problem N/A Malnutrition Alert Is there a minimum of two criteria No selected? Query Text:Check all the applicable criteria. A minimum of two criteria are recommended for diagnosis of either severe or non-severe malnutrition. Malnutrition Related to Morbid Obesity Malnutrition related to morbid obesity No Intervention/Recommendation Comments 1. Continue with [facility] soft ground diet as ordered. 2. Monitor PO intake, wt, labs and skin integrity 3. F/U as low risk in 7 days, 03/15 Expected Outcomes/Goals Expected Outcomes/Goals 1. PO intake to meet at least 75% of nutritional needs. 2. Wt stability, skin to remain intact, labs to approach WNL.
[2018-03-15] MEDS: Levothyroxine 0.075 Mg Tab PO SCH (06:32)
[2018-03-15] MEDS ORDERED: Potassium Chloride 20 mEq ER Tab PO SCH (09:00)
[2018-03-15] MEDS: Calcium Carb/Vit D 500 mg/200 U Tab PO SCH (11:38)
[2018-03-15] MEDS: Vitamin D3 2,000 IU SGL PO SCH (11:38)
[2018-03-15] MEDS: Multivitamin Tab PO SCH (11:39)
--- NOTE | 2018-03-15 13:00 | Internal Medicine Prog Note ---
Internal Medicine Subjective - Subjective Patient seen and examined:: with staff, chart reviewed Patient is:: awake, verbal, interactive, alexis chair Per staff patient has:: no adverse event, no episodes of fall, poor appetite, tolerating meds Internal Medicine Objective - Results Result Diagrams: 03/05/18 20:00 03/14/18 09:24 Recent Labs: Laboratory Last Values WBC 8.7 Th/cmm (4.8-10.8) 03/05/18 20:00 RBC 5.02 Mil/cmm (3.80-5.20) 03/05/18 20:00 Hgb 16.1 gm/dL (12-16) 03/05/18 20:00 Hct 47.4 % (41.0-60) 03/05/18 20:00 MCV 94.4 fl (81-100) 03/05/18 20:00 MCH 32.1 pg (27.0-31.0) H 03/05/18 20:00 MCHC Differential 34.0 pg (28.0-36.0) 03/05/18 20:00 RDW 13.6 % (11.5-20.0) 03/05/18 20:00 Plt Count 363 Th/cmm (150-400) 03/05/18 20:00 MPV 8.3 fl 03/05/18 20:00 Neutrophils % 66.9 % (40.0-80.0) 03/05/18 20:00 Lymphocytes % 20.5 % (20.0-50.0) 03/05/18 20:00 Monocytes % 9.5 % (2.0-10.0) 03/05/18 20:00 Eosinophils % 2.8 % (0.0-5.0) 03/05/18 20:00 Basophils % 0.3 % (0.0-2.0) 03/05/18 20:00 Sodium 136 mEq/L (136-145) 03/14/18 09:24 Potassium 4.1 mEq/L (3.5-5.1) 03/14/18 09:24 Chloride 105 mEq/L (98-107) 03/14/18 09:24 Carbon Dioxide 21.2 mEq/L (21.0-31.0) 03/14/18 09:24 Anion Gap 13.9 (7.0-16.0) 03/14/18 09:24 BUN 14 mg/dL (7-25) 03/14/18 09:24 Creatinine 0.7 mg/dL (0.6-1.2) 03/14/18 09:24 Est GFR ( Amer) TNP 03/14/18 09:24 Est GFR (Non-Af Amer) TNP 03/14/18 09:24 BUN/Creatinine Ratio 20.0 03/14/18 09:24 Glucose 106 mg/dL (70-105) H 03/14/18 09:24 Calcium 9.0 mg/dL (8.6-10.3) 03/14/18 09:24 Total Bilirubin 0.5 mg/dL (0.3-1.0) 03/14/18 09:24 AST 20 U/L (13-39) 03/14/18 09:24 ALT 14 U/L (7-52) 03/14/18 09:24 Alkaline Phosphatase 111 U/L (34-104) H 03/14/18 09:24 Troponin I < 0.01 ng/mL (0.01-0.05) L 03/05/18 20:00 B-Natriuretic Peptide 53.0 pg/mL (5.0-100.0) 03/05/18 20:00 Total Protein 6.8 gm/dL (6.0-8.3) 03/14/18 09:24 Albumin 3.7 gm/dL (3.7-5.3) 03/14/18 09:24 Globulin 3.1 gm/dL 03/14/18 09:24 Albumin/Globulin Ratio 1.2 (1.0-1.8) 03/14/18 09:24 Phenytoin 9.0 ug/ml (10.0-20.0) L 03/10/18 17:34 - Physical Exam Vitals and I&O: Vital Signs Temp 97.7 F 03/15/18 06:21 Pulse 75 03/15/18 06:21 Resp 19 03/15/18 08:00 BP 120/64 03/15/18 06:21 Pulse Ox 96 03/15/18 06:21 Intake & Output 03/14/18 03/15/18 03/15/18 18:59 06:59 18:59 Intake Total 120 Balance 120 Intake: Oral 120 Other: # Voids 3 Active Medications: Current Medications Acetaminophen (Tylenol) 650 mg PO Q4H PRN PRN Reason: Mild Pain / Temp above 100 Stop: 05/04/18 22:16 Al Hydrox/Mg Hydrox/Simethicone (Maalox) 30 ml PO Q4H PRN PRN Reason: GI DISTRESS Stop: 05/04/18 22:16 Aripiprazole (Abilify) 5 mg PO DAILY JESSENIA; Protocol Stop: 05/08/18 08:59 Last Admin: 03/14/18 08:17 Dose: 5 mg Calcium/Vitamin D (Oscal W/Vitamin D) 1 tab PO DAILY JESSENIA Stop: 05/05/18 08:59 Last Admin: 03/14/18 08:15 Dose: 1 tab Divalproex Sodium (Depakote Sprinkle) 500 mg PO BID JESSENIA; Protocol Stop: 05/05/18 08:59 Last Admin: 03/14/18 17:41 Dose: 500 mg Docusate Sodium (Colace) 100 mg PO DAILY JESSENIA Stop: 05/05/18 08:59 Last Admin: 03/14/18 08:16 Dose: 100 mg Famotidine (Pepcid) 20 mg PO BIDAC JESSENIA Stop: 05/05/18 07:29 Last Admin: 03/15/18 06:32 Dose: 20 mg Furosemide (Lasix) 40 mg PO DAILY JESSENIA Stop: 05/05/18 08:59 Last Admin: 03/14/18 08:15 Dose: 40 mg Levothyroxine Sodium (Synthroid) 0.075 mg PO QDAC JESSENIA Stop: 05/05/18 07:29 Last Admin: 03/15/18 06:32 Dose: 0.075 mg Lorazepam (Ativan) 0.5 mg PO Q4H PRN; Protocol PRN Reason: Anxiety/Agitation Stop: 05/04/18 22:49 Last Admin: 03/13/18 02:26 Dose: 0.5 mg Magnesium Hydroxide (Milk Of Magnesia) 30 ml PO HS PRN PRN Reason: Constipation Miscellaneous (Clinical Monitoring) 1 ea MC DAILY PRN PRN Reason: RENAL Stop: 05/05/18 08:59 Multivitamins/Vitamin C (Theragran) 1 tab PO DAILY JESSENIA Stop: 05/05/18 08:59 Last Admin: 03/14/18 08:15 Dose: 1 tab Phenytoin (Dilantin) 200 mg PO BID COUNT INCLUDES THE [facility] Stop: 05/05/18 08:59 Last Admin: 03/14/18 17:40 Dose: 200 mg Phenytoin (Dilantin) 50 mg PO HS COUNT INCLUDES THE [facility] Stop: 05/09/18 00:00 Last Admin: 03/14/18 21:03 Dose: 50 mg Potassium Chloride (Klor-Con) 20 meq PO DAILY JESSENIA Stop: 05/14/18 08:59 Rivaroxaban (Xarelto) 20 mg PO HS JESSENIA Stop: 05/04/18 22:59 Last Admin: 03/14/18 21:03 Dose: 20 mg Vitamin D (Vitamin D3) 2,000 iu PO DAILY JESSENIA Stop: 05/05/18 08:59 Last Admin: 03/14/18 08:16 Dose: 2,000 iu Zolpidem Tartrate (Ambien) 5 mg PO HS PRN PRN Reason: Insomnia Stop: 05/04/18 22:16 Last Admin: 03/14/18 21:03 Dose: 5 mg General: demented HEENT: NC/AT, PERRLA Neck: Supple Lungs: CTAB Cardiovascular: RRR, Normal S1, Normal S2, without murmur Abdomen: soft, non-tender, non-distended Extremities: excoriation Neurological: alert Internal Medicine Assmt/Plan - Assessment Assessment: - Assessment Assessment: seizures schizoaffective recent uti dvt left lower extremity hypothyroidism htn obesity - Plan Plan: seizure precautions o2 as needed continue current plan of care - Plan Plan: cpm dilantin level noted and adjusted diya rn Nutritional Asmnt/Malnutr-PDOC - Dietary Evaluation Malnutrition Findings (Please click <Entered> for more info): Nutritional Asmnt/Malnutrition Start: 03/09/18 14: 19 Text: Status: Complete Freq: Protocol: Document 03/09/18 14:19 MARJORIE (Rec: 03/09/18 14:29 MARJORIE [email or web address]) Nutritional Asmnt/Malnutrition Patient General Information Nutritional Screening Moderate Risk Diagnosis psychosis Pertinent Medical Hx/Surgical Hx seizure, DVT, hypothyroidism, HTN Subjective Information Pt seen eating lunch in dining room at time of visit. Pt was eating well. Per EMR, PO intake 100%. Current Diet Order/ Nutrition Support [facility] Pertinent Medications oscal w/vit D, colace, pepcid, lasix, synthorid, theragran, kcl, vit D3 Pertinent Labs 03/05 nutrition labs WNL Nutritional Hx/Data Height 1.52 m Height (Calculated Centimeters) 152.4 Current Weight (lbs) 81.647 kg Weight (Calculated Kilograms) 81.6 Weight (Calculated Grams) 24561.6 [place] Body Weight 100 Body Mass Index (BMI) 35.2 Weight Status Obese GI Symptoms GI Symptoms None Last BM 03/07 Difficult in: None Skin Integrity/Comment: dryness Current %PO Good (75-100%) Estimated Nutritional Goals BEE in Kcals: Adj wt of IBW Calories/Kcals/Kg 25-30 Kcals Calculated 7425-6371 Protein: Adj wt of IBW Protein g/k Protein Calculated 55 Fluid: ml 1375-1650ml (1ml/kcal) Nutritional Problem No current Nutrition Prob Problem N/A Malnutrition Alert Is there a minimum of two criteria No selected? Query Text:Check all the applicable criteria. A minimum of two criteria are recommended for diagnosis of either severe or non-severe malnutrition. Malnutrition Related to Morbid Obesity Malnutrition related to morbid obesity No Intervention/Recommendation Comments 1. Continue with [facility] soft ground diet as ordered. 2. Monitor PO intake, wt, labs and skin integrity 3. F/U as low risk in 7 days, 03/15 Expected Outcomes/Goals Expected Outcomes/Goals 1. PO intake to meet at least 75% of nutritional needs. 2. Wt stability, skin to remain intact, labs to approach WNL.
--- NOTE | 2018-03-16 02:44 | Progress Notes ---
DATE: 03/15/2018 SUBJECTIVE: Staff was spoken to. The patient is interviewed. Mood is noted to be irritable. Affect is constricted today. The patient has paranoid delusions, but denies any command hallucinations. The patient has been presenting with anxiety symptoms. Today, the patient is currently on the Abilify and has been able to tolerate the medications. No side effects to the Depakote are noted. ASSESSMENT: The patient is anxious and paranoid. PLAN: To continue the patient with the supportive therapy. I encouraged the patient to verbalize the concerns rather than to act out. JOB# [id number]
--- NOTE | 2018-03-17 09:52 | Discharge Summary ---
DATE OF DISCHARGE: 03/15/2018 IDENTIFYING DATA: The patient is a 77-year-old resident of a half-way facility. Information obtained by directly interviewing the patient as well as reviewing the admission papers. JUSTIFICATION FOR HOSPITALIZATION: The patient is admitted on a voluntary basis after she was transferred from the half-way facility. The patient is reported to have been getting agitated and resistive and becoming combative. CHIEF COMPLAINT: "I don't know." DIAGNOSES AT THE TIME OF ADMISSION: AXIS I: Schizophrenia, chronic, paranoid type; rule out schizoaffective disorder. AXIS II: None. AXIS III: As per Dr. Lucio. HISTORY OF PRESENT ILLNESS: Please refer to 03/06/2018 dictation done by me. Physical examination was done by Dr. Lucio and is noted to be significant for multiple medical problems like hypothyroidism and hypertension. HOSPITAL COURSE AND RESPONSE TO TREATMENT: The patient had been closely monitored. The blood work has been reviewed and the patient has been continued on her valproic acid, which was given 500 mg twice a day and the patient has been placed on aripiprazole, which was given at 5 mg on a daily basis. With these medications, the patient has been observed and the patient has been encouraged to comply with the treatment and the patient's psychosis started to resolve. No aggressive behavior was noted and hence the patient was discharged to [facility] on 03/15/2018. MENTAL STATUS EXAMINATION: At the time of discharge, the patient noted to be anxious. Affect is appropriate. Not suicidal or homicidal. Insight and judgment are noted to be improving. Impulse control seems to be fair. The patient denies any command hallucinations. No delusions are noted at the time of discharge. The patient has been able to verbalize the concerns rather than to act out at the time of discharge. Condition at the time of discharge is noted to be stable. DIAGNOSES AT THE TIME OF DISCHARGE: AXIS I: Schizophrenia, chronic, paranoid type. AXIS II: None. AXIS III: Hypothyroidism, hypertension, and hyperlipidemia. AFTERCARE PLAN: The patient is discharged to [facility] for further followup. JOB# [id number]
== END 2018-03-15 21:00 | DRG 885 ==
LOC: ER 18:46 → GERO 20:56
PROVIDERS: ADMIT Psychiatry & Neurology Psychiatry; ATTEND Psychiatry & Neurology Psychiatry
DX: F20.0 Paranoid schizophrenia (principal); N39.0 Urinary tract infection, site not specified; N18.9 Chronic kidney disease, unspecified; E03.9 Hypothyroidism, unspecified; E66.9 Obesity, unspecified; J44.9 Chronic obstructive pulmonary disease, unspecified; I12.9 Hypertensive chronic kidney disease with stage 1 through stage 4 chronic kidney disease, or unspecified chronic kidney disease; B96.89 Other specified bacterial agents as the cause of diseases classified elsewhere; R56.9 Unspecified convulsions; F29 Unspecified psychosis not due to a substance or known physiological condition; E78.5 Hyperlipidemia, unspecified; B96.20 Unspecified Escherichia coli [E. coli] as the cause of diseases classified elsewhere; Z16.12 Extended spectrum beta lactamase (ESBL) resistance; Z86.718 Personal history of other venous thrombosis and embolism; Z79.01 Long term (current) use of anticoagulants; Z68.35 Body mass index [BMI] 35.0-35.9, adult
CPT/HCPCS: 36415-UA; 71045-TC; 80053-TC; 80185-TC; 83880-TC; 84484-TC; 85025-TC; 90899; 93005; G0410; J0696; Z7610